=== PATIENT | male | born 1950 | race Caucasian/White ===

== ENCOUNTER 2023-05-17 16:15 | Outpatient (CLI) | payer MEDICARE, SELFPAY | END 2023-05-17 16:16 | disposition home or self-care (01) | LOC: AMB 05-19 17:15 | PROVIDERS: Visit Provider Student in an Organized Health Care Education/Training Program | DX: S09.93XA Unspecified injury of face, initial encounter (principal); W01.0XXA Fall on same level from slipping, tripping and stumbling without subsequent striking against object, initial encounter; Y93.01 Activity, walking, marching and hiking; Y92.410 Unspecified street and highway as the place of occurrence of the external cause | CPT/HCPCS: A0998 ==

== ENCOUNTER 2023-08-31 11:56 | Emergency (ER) | payer MEDICARE, SELFPAY ==
[2023-08-31 12:02] VITALS: BP 150/94; PULSE 83; RESP 16; TEMP 36.1; O2SAT 95
--- NOTE | 2023-08-31 12:20 | CRLHL7_ITS ---
For Patients: As a result of the Cures Act, medical imaging exams and procedure reports are released immediately into your electronic medical record. You may view this report before your referring provider. If you have questions, please contact your health care provider. INDICATION: FALL HIT HEAD, BLEEDING TECHNIQUE: CT cervical spine without contrast. COMPARISON: None. FINDINGS: Vertebrae: Straightening of expected cervical lordosis. There are no fractures or suspicious bony lesions. Discs and facet joints: There are degenerative disc changes most notably moderate at C5-6. There are multilevel degenerative changes in the facets. Osseous fusion of the posterior elements on the left C4-C5. Extraspinal findings: Paraspinous soft tissues are unremarkable. IMPRESSION: 1. No sign of acute cervical spine fracture. 2. Multilevel degenerative spondylosis. Please note that all CT scans at this facility use dose modulation, iterative reconstruction, and/or weight-based dosing when appropriate to reduce radiation dose to as low as reasonably achievable. Dictated by Darvin Cooley MD @ 08/31/2023 1:37:37 PM (Electronically Signed)
--- NOTE | 2023-08-31 12:20 | CRLHL7_ITS ---
For Patients: As a result of the Cures Act, medical imaging exams and procedure reports are released immediately into your electronic medical record. You may view this report before your referring provider. If you have questions, please contact your health care provider. INDICATION: FALL, BLEEDING RIGHT EYEBROW TECHNIQUE: CT maxillofacial without contrast. COMPARISON: None. FINDINGS: Facial bones: No fractures or bone lesions. Specifically the nasal bones, temporomandibular joints, maxilla and mandible appear intact. Orbits and globes: Unremarkable. Globes are intact. No sign of intraorbital hemorrhage or emphysema. Sinuses: No acute or significant findings. Soft tissues: Small right frontal/periorbital soft tissue contusion/hematoma. IMPRESSION: 1. No evidence of facial fracture. 2. Small right frontal/periorbital soft tissue contusion/hematoma. Please note that all CT scans at this facility use dose modulation, iterative reconstruction, and/or weight-based dosing when appropriate to reduce radiation dose to as low as reasonably achievable. Dictated by Darvin Cooley MD @ 08/31/2023 1:26:00 PM (Electronically Signed)
--- NOTE | 2023-08-31 12:20 | CRLHL7_ITS ---
For Patients: As a result of the Century Cures Act, medical imaging exams and procedure reports are released immediately into your electronic medical record. You may view this report before your referring provider. If you have questions, please contact your health care provider. INDICATION: FALL, BLEEDING RIGHT EYEBROW TECHNIQUE: Head CT without contrast. COMPARISON: CT head December 01, 2020. FINDINGS: Advanced cortical volume loss again most notably within the anterior frontal temporal regions with associated ventriculomegaly likely related to exact dilatation from volume loss. White matter hypodensities are suggestive of chronic small vessel ischemic changes. There is no loss of urena-white differentiation. There is no evidence of acute intracranial hemorrhage. Small right frontal/periorbital soft tissue contusion/hematoma. The visualized paranasal sinuses and mastoid air cells demonstrate no acute or significant findings. The visualized orbits are grossly unremarkable. No skull fractures. IMPRESSION: 1. No evidence of intracranial hemorrhage or skull fracture. 2. Small right frontal/periorbital soft tissue contusion/hematoma. 3. Advanced cortical volume loss again most notably within the anterior frontal temporal regions with associated ventriculomegaly likely related to expected dilatation from volume loss although would recommend correlation for signs symptoms of normal pressure hydrocephalus. These findings are similar to prior exam from December 01, 2020. Please note that all CT scans at this facility use dose modulation, iterative reconstruction, and/or weight-based dosing when appropriate to reduce radiation dose to as low as reasonably achievable. Dictated by Darvin Cooley MD @ 08/31/2023 1:21:28 PM (Electronically Signed)
--- NOTE | 2023-08-31 13:11 | ED.FALL ---
HPI - Fall General Date Seen: 08/31/23 Chief Complaint: Fall/Minor Trauma Stated Complaint: Fell, face lac Time Seen by Provider: 08/31/23 12:13 Source: patient Mode of arrival: ambulatory Limitations: altered mental status History of Present Illness HPI Narrative: Patient is a 73-year-old male with history of late stage severe dementia presenting to the emergency department for a fall he is here with his daughter and . They states he was with a friend when he fell. They are not sure how he fell but do states he has been tripping and falling a lot over the past year. He states he is otherwise acting at his baseline since that happened. The nose the cut above his right eye. They are not aware of any other problems at this time. Patient is unable answer any questions due to his dementia. Family states the not think it was a medical reason that he fell in our pretty sure he just tripped again. Related Data Home Medications Medication Instructions Recorded Confirmed amlodipine 5 mg tablet 5 mg PO DAILY 08/31/23 08/31/23 Allergies Allergy/AdvReac Type Severity Reaction Status Date / Time No Known Drug Allergies Allergy Verified 08/31/23 12:06 Review of Systems Status of ROS: Reports: unobtainable due to mental status PFSH PFSH Social History Smoking Status: Unknown if ever smoked Exam Narrative: Exam Narrative: Const: Well-nourished, Well-developed, in no distress Eyes: PERRL, no conjunctival injection, and symmetrical lids HENT: Atraumatic external nose and ears. Moist mucous membranes. Small laceration above right eyebrow Neck: Symmetric, trachea midline, No thyromegaly. CVS: RRR, No murmurs or gallops. Peripheral pulses 2+ and equal in all extremities RESP: Unlabored respiratory effort. Clear to auscultation bilaterally. GI: Nontender/Nondistended, No rebound or guarding. MSK:Extremities w/o deformity, Normal Active ROM Skin: Warm, Dry. No rashes or lesions. Neuro: Normal Muscle tone, No focal neurological deficits. Psych: Awake, Alert, & Oriented x0. Nonverbal Const: Vital Signs, click to edit/add: Vital Signs - 24 hr 08/31/23 12:02 08/31/23 14:20 Temperature 96.9 F L Pulse Rate [Pulse Oximeter] 83 97 Respiratory Rate 16 16 Blood Pressure [Ri ght Upper Arm] 150/94 H 144/120 H Pulse Oximetry 95 73 L Oxygen Delivery Me thod Room Air Room Air Course Vital Signs Vital signs: Initial Vital Signs Temperature 96.9 F L 08/31/23 12:02 Temperature Source Temporal Artery Scan 08/31/23 12:02 Pulse Rate 83 08/31/23 12:02 Respiratory Rate 16 08/31/23 12:02 Blood Pressure 150/94 H 08/31/23 12:02 Blood Pressure Mean 112 H 08/31/23 12:02 Blood Pressure Position Sitting 08/31/23 12:02 Pulse Oximetry 95 08/31/23 12:02 Oxygen Delivery Method Room Air 08/31/23 12:02 Vital Signs Temperature 96.9 F L 08/31/23 12:02 Pulse Rate 83 08/31/23 12:02 Respiratory Rate 16 08/31/23 12:02 Blood Pressure 150/94 H 08/31/23 12:02 Pulse Oximetry 95 08/31/23 12:02 Oxygen Delivery Method Room Air 08/31/23 12:02 Temperature 96.9 F L 08/31/23 12:02 Pulse Rate 97 08/31/23 14:20 Respiratory Rate 16 08/31/23 14:20 Blood Pressure 144/120 H 08/31/23 14:20 Pulse Oximetry 73 L 08/31/23 14:20 Oxygen Delivery Method Room Air 08/31/23 14:20 MDM - Fall MDM Narrative Medical decision making narrative: Patient is a 73-year-old male presenting to emergency department after a fall. Family describes as a mechanical fall in nature but cannot say for certain. I spoke to him about doing workup for other abnormalities that may have caused the fall but they state that would likely cause more stress for the patient than it is worth and do not want anything more than the CT scans at this time, this includes not wanting an EKG. OCT is head, facial bones, cervical spine. Images were done and returned showing no acute concerning findings. I spoke to the family about skin glue versus sutures at this time they think skin glue would be better. This is reasonable and skin glue was placed over laceration. There is about .75 cm long. He is otherwise doing well and can be discharged home. Family agrees with this plan. Imaging Data CT scan head: Radiologist's impression: 1. No evidence of intracranial hemorrhage or skull fracture. 2. Small right frontal/periorbital soft tissue contusion/hematoma. 3. Advanced cortical volume loss again most notably within the anterior frontal temporal regions with associated ventriculomegaly likely related to expected dilatation from volume loss although would recommend correlation for signs symptoms of normal pressure hydrocephalus. These findings are similar to prior exam from December 01, 2020. Please note that all CT scans at this facility use dose modulation, iterative reconstruction, and/or weight-based dosing when appropriate to reduce radiation dose to as low as reasonably achievable. Dictated by Darvin Cooley MD @ 08/31/2023 1:21:[address] scan cervical spine: Radiologist's impression: 1. No sign of acute cervical spine fracture. 2. Multilevel degenerative spondylosis. Please note that all CT scans at this facility use dose modulation, iterative reconstruction, and/or weight-based dosing when appropriate to reduce radiation dose to as low as reasonably achievable. Dictated by Darvin Cooley MD @ 08/31/2023 1:37:[address] scan facial bones: Radiologist's impression: 1. No evidence of facial fracture. 2. Small right frontal/periorbital soft tissue contusion/hematoma. Please note that all CT scans at this facility use dose modulation, iterative reconstruction, and/or weight-based dosing when appropriate to reduce radiation dose to as low as reasonably achievable. Dictated by Darvin Cooley MD @ 08/31/2023 1:26:00 PM Discharge Plan Discharge Clinical Impression: Fall Qualifiers: Encounter type: initial encounter Qualified Code(s): W19.XXXA - Unspecified fall, initial encounter Patient Disposition: Home w/ Parent or Adult Condition: Stable Instructions: Fall Prevention for Older Adults (ED) Additional Instructions: Do not place any antibiotic ointment or rub the area for 7 days to give the scab time to fully heal. For next 6 months, once sutures are removed, whenever you go outside put a dab of sunscreen over the laceration site to improve scar appearance. Topical antibiotics are not necessary at this time. Patient can shower but do not submerge the laceration until sutures are removed Return to emergency department for new or worsening symptoms Prescriptions: No Action amlodipine 5 mg tablet 5 mg PO DAILY Follow Up/Referrals: Deepak Meyer MD [Primary Care Provider] - Stand Alone Forms: [facility] Info Instructions Procedures Laceration Right eyebrow: Name of person performing procedure: Deepak Phillips Site: face (Eyebrow) Side (If applicable): right Size (cm): 0.75 Description: linear and clean Depth: simple, single layer Pre-repair: wound explored, irrigated extensively and deep structures intact Skin layer closed with: other (Skin glue)
[2023-08-31 14:20] VITALS: BP 144/120; PULSE 97; RESP 16; O2SAT 73
== END 2023-08-31 14:48 | disposition home or self-care (01) ==
PROVIDERS: Emergency Provider Student in an Organized Health Care Education/Training Program; PCP Surgery
DX: S01.111A Laceration without foreign body of right eyelid and periocular area, initial encounter (principal); S01.21XA Laceration without foreign body of nose, initial encounter; W18.30XA Fall on same level, unspecified, initial encounter
CPT/HCPCS: 12011; 70450; 70486; 72125; 99283

== ENCOUNTER 2024-09-08 21:30 | Inpatient (IN) | payer MEDICARE, SELFPAY ==
[2024-09-08 21:34] VITALS: BP 136/83; PULSE 108; RESP 16; TEMP 38; O2SAT 93; BMI 24.4
--- NOTE | 2024-09-08 21:38 | CRLHL7_ITS ---
For Patients: As a result of the Cures Act, medical imaging exams and procedure reports are released immediately into your electronic medical record. You may view this report before your referring provider. If you have questions, please contact your health care provider. INDICATION: Cough. TECHNIQUE: Chest 1 views. COMPARISON: April 29, 2021. FINDINGS: Cardiovascular and mediastinum: Stable heart size and vasculature. Lungs and pleural spaces: Interstitial thickening. No sign of infiltrate or mass. No sign of pleural effusion. No pneumothorax. Bones and soft tissues: No significant findings. IMPRESSION: Interstitial thickening, possibly pulmonary edema or infection in the appropriate clinical setting. No focal consolidations. Dictated by Mark Ibarra MD @ 09/08/2024 10:08:33 PM (Electronically Signed)
--- NOTE | 2024-09-08 21:44 | ED.GENADULT ---
HPI - General Adult General Chief complaint: Cough Stated complaint: AMS Time Seen by Provider: 09/08/24 21:36 History of Present Illness HPI narrative: This 74-year-old male is in respite care and a couple family members come with him. He is nonverbal and family member state that this is not new. He does arrive with some tachycardia and a fever. Family report symptoms began yesterday. Related Data Home Medications ?Medication ?Instructions ?Recorded ?Confirmed amlodipine 5 mg tablet 5 mg PO DAILY 08/31/23 08/31/23 Allergies Allergy/AdvReac Type Severity Reaction Status Date / Time No Known Drug Allergies Allergy Verified 08/31/23 12:06 Review of Systems Status of ROS: Reports: unobtainable due to mental status PFSH PFS Social History Smoking Status: Unknown if ever smoked Exam Narrative: Exam Narrative: Constitutional: Well-developed, well-nourished, no acute distress. HEENT: Normocephalic, atraumatic. Neck: Normal range of motion. Nontender. Supple. Heart: Regular. No murmurs. Tachycardia, rate 108 beats per minute Intact distal pulses. Lungs: Clear to auscultation. No chest discomfort. No wheezes, rhonchi, or rales. Abdomen: Normal bowel sounds. Nontender. No rebound tenderness. Genitalia: Deferred. Back: No midline tenderness. Normal range of motion. Extremities: Normal range of motion. No injury. Skin: Intact. No rash. Warm. No erythema or pallor. Neurologic: No altered sensation. No weakness. Alert and oriented. Psychiatric: No suicidality. No anxiety or depression. No insomnia. Nursing notes and vitals signs are reviewed. Const: Vital Signs, click to edit/add: Vital Signs - 24 hr 09/08/24 21:34 Temperature 100.4 F H Pulse Rate [Right Pulse Oximeter] 108 H Respiratory Rate 16 Blood Pressure [Ri ght Upper Arm] 136/83 Pulse Oximetry 93 Oxygen Delivery Me thod Room Air Course Vital Signs Vital signs: Initial Vital Signs Respiratory Effort Normal 09/08/24 21:33 Respiratory Depth Normal 09/08/24 21:33 Respiratory Pattern Normal 09/08/24 21:33 Vital Signs Temperature 100.4 F H 09/08/24 21:34 Pulse Rate 108 H 09/08/24 21:34 Respiratory Rate 16 09/08/24 21:34 Blood Pressure 136/83 09/08/24 21:34 Pulse Oximetry 93 09/08/24 21:34 Oxygen Delivery Method Room Air 09/08/24 21:34 Temperature 100.4 F H 09/08/24 21:34 Pulse Rate 108 H 09/08/24 21:34 Respiratory Rate 16 09/08/24 21:34 Blood Pressure 136/83 09/08/24 21:34 Pulse Oximetry 93 09/08/24 21:34 Oxygen Delivery Method Room Air 09/08/24 21:34 Medications Administered Medications: Discontinued Medications Generic Name Dose Route Start Last Admin Trade Name Gely PRN Reason Stop Dose Admin Sodium Chloride 500 mls @ 500 mls/hr 09/08/24 21:43 09/08/24 22:41 0.9 % Sodium Chloride 500 Ml IV 09/08/24 22:42 Infused .Q1H ONE Infusion Ketorolac Tromethamine 15 mg 09/08/24 21:43 09/08/24 22:04 Ketorolac 30 Mg/Ml Inj IVP 09/08/24 21:44 15 mg ONCE ONE Administration Medical Decision Making MDM Narrative Medical decision making narrative: This patient is currently in respite care but otherwise typically is at home with family. He has frontal temporal dementia but normally ambulates and functions okay at home. He comes in with tachycardia and borderline fever. He has had a cough. Nasal pharyngeal swab returns positive for COVID. Lab results also show some significant findings. In particular his sodium is rather high at 158. The patient did receive an initial 500 mL of normal saline but then seeing the sodium level a L of D5 W was ordered. His lactate returns at 2.1 however he is volume depleted. His BUN to creatinine ratio is greater than 20 indicating pre renal azotemia. I did speak with the hospitalist on-call, Dr. Lai, who agrees to bring him in for hydration over time to normalize his sodium level. Lab Data Labs: Lab Results 09/08/24 09/08/24 Range/Units 21:40 21:57 WBC 11.30 H (4.50-11.00) K/uL RBC 5.36 (4.30-5.90) m/uL Hgb 16.1 (13.5-17.5) gm/dL Hct 52.9 (37.0-53.0) % MCV 99 (80-100) fL MCH 30 (26-34) pg MCHC 30 L (32-36) gm/dL RDW Coeff of Bettye 14.0 (11.5-15.5) % Plt Count 186 (140-440) K/uL Neut % (Auto) 89.4 H (42.0-72.0) % Lymph % (Auto) 4.1 L (20-44) % Charles % (Auto) 5.8 (0.0-11.0) % Eos % (Auto) 0.2 (0.0-7.0) % Baso % (Auto) 0.2 (0.0-3.0) % Neut # (Auto) 10.10 H (1.7-7.0) K/uL Lymph # (Auto) 0.50 L (0.90-2.90) K/uL Charles # (Auto) 0.70 (0.00-0.90) K/UL Eos # (Auto) 0.00 (0.00-0.50) K/uL Baso # (Auto) 0.00 (0.00-0.30) K/uL Abs Immat Gran (auto) 0.00 (0.00-0.30) K/uL Imm/Tot Granulo (auto) 0.3 % Sodium 158 H (135-149) mmol/L Potassium 4.1 (3.6-5.1) mmol/L Chloride 118 H (96-114) mmol/L Carbon Dioxide 30 (20-32) mmol/L Anion Gap 10 (7-15) mEq/L BUN 55 H (7-30) mg/dL Creatinine 1.6 H (0.5-1.5) mg/dL Estimated Creat Clear 45.81 Estimated GFR 46 ml/min Glucose 143 H (60-115) mg/dL Lactate 2.1 H (0.5-1.9) mmol/L Calcium 9.8 (8.4-10.6) mg/dL SARS-CoV-2 (PCR) POSITIVE SARS-CoV-2 A (Negative) Influenza Type A (PCR) Negative PCR FLU A (Negative) Influenza Type B (PCR) Negative PCR FLU B (Negative) RSV (PCR) Negative PCR RSV (Negative) Imaging Data Chest x-ray: Radiologist's impression: Interstitial thickening, possibly pulmonary edema or infection in the appropriate clinical setting. No focal consolidations. Discharge Plan Discharge Clinical Impression: COVID-19, Hypernatremia Patient Disposition: Admitted As Observation Condition: Unchanged Prescriptions: No Action amlodipine 5 mg tablet 5 mg PO DAILY Follow Up/Referrals: Deepak Meyer MD [Primary Care Provider] -
[2024-09-08 22:03] LABS: Lactate* 2.1 mmol/L (0.5-1.9)
[2024-09-08 22:04] LABS: Basophils Percent Auto 0.2 % (0.0-3.0); Eosinophils Percent Auto 0.2 % (0.0-7.0); Hematocrit 52.9 % (37.0-53.0); Hemoglobin* 16.1 gm/dL (13.5-17.5); Immature Granulocytes Pct Auto 0.3 %; Lymphocytes Percent Auto 4.1 % (20-44); Mean Corpuscular HGB Conc 30 gm/dL (32-36); Mean Corpuscular Hemoglobin 30 pg (26-34); Mean Corpuscular Volume 99 fL (80-100); Monocytes Percent Auto 5.8 % (0.0-11.0); Neutrophils Percent Auto 89.4 % (42.0-72.0); Platelet Count* 186 K/uL (140-440); Red Blood Count 5.36 m/uL (4.30-5.90)
[2024-09-08] MEDS: KETOROLAC 30 MG/ML inj 15 MG IVP (22:04)
[2024-09-08] MEDS: 0.9 % SODIUM CHLORIDE 500 ML 500 ML IV (22:04)
[2024-09-08 22:08] LABS: Slide Review Reflex No
[2024-09-08 22:21] LABS: Chloride* 118 mmol/L (96-114); Potassium* 4.1 mmol/L (3.6-5.1); Sodium* 158 mmol/L (135-149)
[2024-09-08 22:24] LABS: Anion Gap 10 mEq/L (7-15); Blood Urea Nitrogen* 55 mg/dL (7-30); Carbon Dioxide* 30 mmol/L (20-32); Creatinine* 1.6 mg/dL (0.5-1.5); Est. Creatinine Clearance* 45.81; Estimated Glomerular Filt Rate 46 ml/min; Glucose* 143 mg/dL (60-115)
[2024-09-08 22:25] LABS: Calcium* 9.8 mg/dL (8.4-10.6)
[2024-09-08 22:37] LABS: PCR FLU A Negative PCR FLU A (Negative); PCR FLU B Negative PCR FLU B (Negative); PCR RSV Negative PCR RSV (Negative); SARS PCR* POSITIVE SARS-CoV-2 (Negative)
[2024-09-08] MEDS: 5 % DEXTROSE 1000 ML 1,000 ML 250 ML IV (23:24)
--- NOTE | 2024-09-08 23:51 | P.IMHP_ITS ---
Hospitalist- H&P: HPI History of Present Illness Date Seen: 09/08/24 Chief complaint: AMS Narrative: Flynn Gonzalez is a 74 year old male with advanced frontotemporal dementia admitted to the hospital with about a 1 day history of fever and cough and not being himself/appearing ill. History is obtained from family as the patient is nonverbal. Patient is normally cared for by his daughter who is also his healthcare power of electrophysiology technician. She has been gone for 2 weeks and so he was placed in respite care in [place] for these past 2 weeks. She has returned and was planning on taking him home but he appeared ill and so he was brought to the emergency [facility]. He may have had some mild cold symptoms in the last several days but became acutely ill in the last day or so. Patient has advanced frontal temporal dementia. He is nonverbal and appears not to respond to verbal communication such as indicating any type of understanding or following simple commands. He will not drink unless a drinking glass is put up to his mouth. When his daughter cares for him she leaves a glass right next to him where he is sitting but he wound drink unless she offers it to him which she does regularly through the day. The patient has no ability to indicate hunger or thirst or to communicate that. It is suspected that the staff at the assisted living did not continuously provide water in the manner that the daughter had been doing when he was living at home. He does feed himself to a limited extent but often needs to be fed as well. He is incontinent of bowel and bladder. He does walk with standby assist or walking stick. In the emergency department he was found to have a positive COVID test. Chest x-ray had interstitial thickening which may represent some heart failure or an infectious process such as viral pneumonia. His sodium was 158. His creatinine tonight is 1.6. His creatinine in January of 2023 was 1.08. Review of Systems Narrative: Patient unable to give any history. Family gives history as noted above. [facility] Medical History (Updated 09/09/24 @ 00:21 by Vinay Lai MD) Palliative care encounter ?Z51.5 - Encounter for palliative care (ICD-10) Frontotemporal dementia ?G31.09 - Other frontotemporal neurocognitive disorder (ICD-10) ?F02.80 - Dementia in other diseases classified elsewhere, unspecified severity, without behavioral disturbance, psychotic disturbance, mood disturbance, and anxiety (ICD-10) Hypertension ?I10 - Essential (primary) hypertension (ICD-10) Surgical History (Updated 09/09/24 @ 00:09 by Vinay Lai MD) History of colonoscopy ?Z98.890 - Other specified postprocedural states (ICD-10) S/P repair of hydrocele ?Z98.890 - Other specified postprocedural states (ICD-10) ?Z87.438 - Personal history of other diseases of male genital organs (ICD-10) History of tonsillectomy and adenoidectomy ?Z90.89 - Acquired absence of other organs (ICD-10) History of arthroscopy of shoulder ?Z98.890 - Other specified postprocedural states (ICD-10) Family History (Updated 09/09/24 @ 00:10 by Vinay Lai MD) Mother Colon cancer Father Alzheimers disease Parkinsons disease Social History (Updated 09/09/24 @ 00:12 by Vinay Lai MD) Narrative: He lives with his daughter who is his primary care provider and power of electrophysiology technician. He is a nonsmoker. Previously chewed tobacco. Does not drink alcohol. He is ambulatory with a walking stick or with his daughter holding on. Incontinent of bowel and bladder. Nonverbal. Unable to obtain food or fluid without caregiver initiating giving food or water Smoking Status: Unknown if ever smoked Meds Home Medications and Allergies Home Medications ?Medication ?Instructions ?Recorded ?Confirmed ?Type amlodipine 5 mg tablet 5 mg PO DAILY 08/31/23 08/31/23 History Allergies Allergy/AdvReac Type Severity Reaction Status Date / Time No Known Drug Allergies Allergy Verified 08/31/23 12:06 Exam Narrative: Exam Narrative: He is alert and appears in no obvious distress. Occasional cough with some rhonchi noted. No increased work of breathing. Nonverbal. Does not follow simple commands or in any other way indicate agreement or cooperation with exam. Head is without apparent trauma. Eyes normal. Mucous membranes are dry. No facial asymmetry. Neck is supple without mass or adenopathy. Respirations are clear to auscultation except for a rare basilar crackle. Cardiovascular: S1, S2, regular rate and rhythm. Abdomen: Bowel sounds active. Abdomen is soft without tenderness or mass. External genitalia normal. Extremities without edema. He moves all 4 extremities well. Const: Vital Signs, click to edit/add: Vital Signs - 24 hr 09/08/24 21:34 Temperature 100.4 F H Pulse Rate [Right Pulse Oximeter] 108 H Respiratory Rate 16 Blood Pressure [Ri ght Upper Arm] 136/83 Pulse Oximetry 93 Oxygen Delivery Me thod Room Air Documenting provider has reviewed patient's vital signs: yes Hospitalist - H&P: Result Labs Labs: Short CBC 09/08/24 Range/Units 21:57 WBC 11.30 H (4.50-11.00) K/uL Hgb 16.1 (13.5-17.5) gm/dL Hct 52.9 (37.0-53.0) % Plt Count 186 (140-440) K/uL BMP 09/08/24 21:57 Sodium 158 H Potassium 4.1 Chloride 118 H Carbon Dioxide 30 BUN 55 H Creatinine 1.6 H Glucose 143 H Calcium 9.8 Imaging Chest x-ray: Radiologist's impression: INDICATION: Cough. TECHNIQUE: Chest 1 views. COMPARISON: April 29, 2021. FINDINGS: Cardiovascular and mediastinum: Stable heart size and vasculature. Lungs and pleural spaces: Interstitial thickening. No sign of infiltrate or mass. No sign of pleural effusion. No pneumothorax. Bones and soft tissues: No significant findings. IMPRESSION: Interstitial thickening, possibly pulmonary edema or infection in the appropriate clinical setting. No focal consolidations. Assessment and Plan Assessment and plan (1) Hypernatremia: Problem comment: Patient likely has severe thirst from a sodium of 158 which he cannot communicate due to dementia. Also unable to independently obtain fluids to relieve his thirst. He requires a caregiver to provide fluids by putting them up to his mouth. Not just making them readily available. Likely will correct hypernatremia if offered free water. He has probably had this problem for several days while he has been in respite care so correction of sodium should be at or less than 12 millimoles per L per day Status: Acute (2) COVID-19: Problem comment: Has cough and congestion and possibly findings on chest x-ray of interstitial fluid representing viral pneumonia. Consider steroids if requiring oxygen Status: Acute (3) Hypertension: Problem comment: He takes amlodipine p.r.n. for elevated blood pressures. Does not take it most days. May not need blood pressure treatment Status: Acute (4) Frontotemporal dementia: Problem comment: Longstanding progressive. Now nonverbal, not able to indicate hunger or thirst. I initiated but did not complete a conversation about goals of care and palliative care with daughter. Status: Acute (5) Palliative care encounter: Problem comment: I initiated but did not complete a conversation with his daughter about goals of care and palliative care in a nonverbal patient with severe dementia who is unable to indicate hunger or thirst or initiate getting food or water. Status: Acute (6) NANCY (acute kidney injury): Problem comment: Likely pre renal NANCY due to patient's inability to communicate thirst or obtain water. Status: Acute Plan Patient is admitted to the hospital for evaluation and management of hypernatremia, acute kidney injury, COVID pneumonia. Total time spent today is 85 minutes in reviewing outside records, obtaining history, discussing with family and other providers plan of care, goals of care and expected course of treatment
[2024-09-08 23:54] VITALS: BP 111/75; PULSE 91; RESP 16; TEMP 37.4; O2SAT 93
[2024-09-09] VITALS (34 sets, daily range): BP systolic 76–141; BP diastolic 36–101; PULSE 87–164; RESP 16–28; TEMP 37.2–40.4; O2SAT 70–96
[2024-09-09 00:04] LABS: Lactate* 2.1 mmol/L (0.5-1.9)
[2024-09-09 00:21] LABS: Chloride* 119 mmol/L (96-114); Potassium* 3.4 mmol/L (3.6-5.1); Sodium* 157 mmol/L (135-149)
[2024-09-09 00:23] LABS: Creatinine* 1.5 mg/dL (0.5-1.5); Est. Creatinine Clearance* 48.86; Estimated Glomerular Filt Rate 49 ml/min
[2024-09-09 00:24] LABS: Anion Gap 9 mEq/L (7-15); Blood Urea Nitrogen* 56 mg/dL (7-30); Calcium* 9.4 mg/dL (8.4-10.6); Carbon Dioxide* 29 mmol/L (20-32); Glucose* 168 mg/dL (60-115)
--- OUTSIDE RECORDS SUMMARY | 2024-09-09 00:25 | XMS_ITS | Clinical Summary ---
Author Organization [facility] Address [place], [place] [address] Care Team Providers Care Bioassayist Name Role Phone Deepak Meyer MD Primary Care Provider [phone] Allergies Active Allergy Reactions Criticality Noted Date Comments Mold Extracts 07/30/2007 Medications cholecalciferol (VITAMIN D3) 2,000 unit capsule Take 2,000 Units by mouth. Active multivitamins-mi nerals-lutein (CENTRUM SILVER) 0.4-300-250 mg-mcg-mcg tab Take 1 tablet by mouth. Active ascorbic acid CR (VITAMIN C) 500 mg Extended-Release tablet Daily Active zinc sulfate 50 mg zinc (220 mg) capsule Daily Active amLODIPine (NORVASC) 5 mg tabletIndication s:HTN (hypertension) Take 1 Tablet (5 mg) by mouth once daily. 90 Tablet 3 05/06/2024 Active Active Problems Problem Noted Date Diagnosed Date Elevated liver enzymes 12/14/2020 Frontotemporal dementia 12/14/2020 Overview (11/12/2023): Nonverbal Esophageal dysphagia 03/16/2017 Overview (03/16/2017): Colonoscopy 02/2017 normal, try proton pump inhibitor, manometry if symptoms persist Family history of malignant neoplasm of gastrointestinal tract 12/08/2008 Overview (12/30/2015): Colonoscopy 11/2008 polyp repeat in 5 years Colonoscopy 12/2015 diverticulosis repeat in 5 years Resolved Problems Problem Noted Date Diagnosed Date Resolved Date Diarrhea 04/07/2009 12/30/2015 Encounters Date Type Department Care Team Description 08/28/2024 Telephone [facility] [address] [place] [address] Deepak eMyer MD orders (hold orders) from Last 3 Months Immunizations Name Administration Dates Next Due Influenza, High-dose Inactivated 07/01/2018,06/21 Influenza, Inactivated AIIV4 (Age 65+ Years) Preserv Free 06/03/2021,08/04/2020 Influenza, Inactivated IIV3 (Age 65+ Years) Preserv Free 05/06/2024,05/22/2019,07/01/2018 Pneumococcal Poly,23-Valent (Pneumovax) 05/22/20 19 Pneumococcal conj 13-Valent (Prevnar 13) 017 Td (Age >=7 Years) 09/06/2017,06/14/1992, 991 Tdap 07/16/2007 Zoster (Zostavax-ZVL, live) 09/25/2012 Family History Medical History Relation Name Comments Other Father dementia, parki nsons Diabetes Maternal Grandfather Cancer-colon Mother age 65 Relation Name Status Comments Father Maternal Grandfather Mother Social History Tobacco Use Types Packs/Day Years Used Date Smoking Tobacco: Never Smokeless Tobacco: Former Snuff Quit: 09/28/2011 Tobacco Cessation:Counseling Given: Yes Alcohol Use Standard Drinks/Week Comments Not Currently 0 (1 standard drink = 0.6 oz pur e alcohol) PHQ-2 Answer Date Recorded PHQ-2 TOTAL SCORE 3 05/06/2024 Social Connections Answer Date Recorded Frequency of Communication with Friends and Fami ly 0 04/24/2023 Financial Resource Strain Answer Date R ecorded Difficulty of Paying Living Expenses 3 04/24/2023 Difficulty of Paying Living Expenses Not on file 04/24/2023 Food Insecurity Answer Date Recorded Worried About Running Out of Food in the Last Ye ar 1 04/24/2023 Transportation Needs Answer Date Record ed Lack of Transportation (Medical) 1 04/24/2023 Housing Stability Answer Date Recorded Unable to Pay for Housing in the Last Year 1 04/24/2023 Sex and Gender Information Value Date Recorded Sex Assigned at Not on file Legal Sex Male 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 Gender Identity Not on file Sexual Orientation Not on file 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 Not on file Not o n file Not on file Obstetrics History Last Filed Vital Signs Vital Sign Reading Time Taken Comments Blood Pressure 138/88 05/06/2024 1:12 PM CDT Pulse 53 05/06/2024 1:12 PM CDT Temperature 36.3 C (97.4 F) 12/14/2020 3:59 PM CDT Respiratory Rate 16 10/31/2011 1:30 PM CDT Oxygen Saturation 99% 05/06/2024 1:12 PM CDT Inhaled Oxygen Concentration - - Weight 83.6 kg (184 lb 4.8 oz) 05/06/2024 1:12 P M CDT Height 187 cm (6' 1.62) 05/06/2024 1:12 PM CDT Body Mass Index 23.91 05/06/2024 1:12 PM CDT Plan of Treatment Health Maintenance Due Date Last Done Comments Zoster (shingles) series for age 50+ (2 of 3) 11/20/2012 09/25/2012 Colonoscopy through age 75 12/29/202012/29, 12/30/2015, 12/08/2008 COVID-19 vaccine series ( season) 2024 BMI (ht and wt on same day) for age 18+ 05/06/2025 05/06/2024, 04/24/2023, 01/24/2023, Additional history exists Depression screening for age 12+ 05/06/2025 05/06/2024, 04/24/2023, 01/24/2023, Additional history exists Medicare Wellness for age 65+ 05/07/2025, 04/24/2023, 12/14/2020, Additional history exists Lipids for age 45-75 12/14/2025 12/14/2020, 09/06/2017, 09/27/2012, Additional history exists RSV vaccine for adults or (1 - 1-dose 75+ series) 02/01/2027 Tetanus booster 09/06/2027 09/06/2017, 06/21, 06/14/1992, Additional history exists Tdap Completed 07/16/2007 Hepatitis C screening for ag e 18-79 Completed 09/06/2017 Pneumococcal series for age 50+ Completed 9, 02/28/2017 Influenza for age 65+ Completed 05/06/2024 , 06/03/2021, 08/04/2020, Additional history exists Procedures Procedure Name Priority Date/Time Associated Diagnosis Comments LIPID PANEL Routine 12/14/2020 4:49 PM CDT Screening, lipid ANTI HCV Routine 09/06/2017 2:00 PM RETAIL FINANCIAL ANALYST Encounter for hepatitis C screening test for low risk patient from Last 3 Months or Most Recently Relevant to Health Maintenance Results * (ABNORMAL) LIPID PANEL (12/14/2020 4:49 PM CDT) CHOLESTEROL,TOTAL 213(H) 100 - 199 mg/dL 12/15/2020 2:43 PM CDT [facility] TRIGLYCERIDES 246(H) <150 mg/dL 12/15/2020 2:43 PM CDT [facility] HDL CHOLESTEROL 34(L) >40 mg/dL 2:43 PM CDT [facility] NON-HDL CHOLESTEROL 179(H) <145 mg/dl 12/15/2020 2:43 PM CDT [facility] CHOL/HDL RATIO 6.26(H) <4.50 12/15/2020 2:43 PM CDT [facility] LDL CHOLESTEROL 130 <=130 mg/dL 12/15/2020 2:43 PM CDT [facility] VLDL CHOLESTEROL 49 mg/dL 12/16/19 2:43 PM CDT [facility] PROVIDER ORDERED STATUS RANDOM 12/15/2020 2:43 PM CDT [facility] Blood BLOOD SPECIMEN / Unknown Butterfly / Unknown 12/14/2020 4:49 PM CDT 12/14/2020 4:49 PM CDT us Deepak Meyer MD CHEMISTRY Final Resu lt [facility] [address] [place] [address], [place] * ANTI HCV (09/06/2017 2:00 PM RETAIL FINANCIAL ANALYST) HEPATITIS C ANTIBODY Non-Reacti ve Non-Reacti ve 09/06/2017 8:47 PM RETAIL FINANCIAL ANALYST [facility] Blood BLOOD SPECIMEN / Unknown Venipuncture / Unknown 09/06/2017 2:00 PM RETAIL FINANCIAL ANALYST 09/06/2017 2:01 PM RETAIL FINANCIAL ANALYST Narrative [facility] - 09/06/2017 8:47 PM RETAIL FINANCIAL ANALYST Antibodies to HCV not detected; does not exclude the possibility of exposure to HCV. us Georgi Phillips MD SEND OUTS Final Resu lt [facility] [address] [place] [address], from Last 3 Months or Most Recently Relevant to Health Maintenance Insurance [facility] MR/MSHO Advance Directives Documents on File Type Date Recorded Patient Vice Admiral Expl anation Healthcare Directive 09/07/2017 9:06 AM VERÓNICA KERR, 08/22/17 Power of Construction Laborer 07/24/2017 CHRISTINA CARLSON AND JAQUAN CARLSON, 07/24/2017 Care Teams Bioassayist Relationship Specialty Start Date End Date Deepak Meyer MD [address] [facility] [place] [address] PCP - General Family Practice 06/07/21
--- OUTSIDE RECORDS SUMMARY | 2024-09-09 00:25 | XMS_ITS | Continuity of Care Document ---
Author Name [facility] Address Unknown Organization Unknown Address Unknown Procedures FILTER APPLIED:Only known Procedures with Onset Date within the last 5 years Procedure Date Procedure Provider Additiona l Information Status CT HEAD/BRAIN W/O DYE ([address]) [address] MAXILLOFACIAL W/O DYE (94827) Completed EMERGENCY DEPT VISIT LOW MDM (15682) Completed RPR F/E/E/N/L/M 2.5 CM/< (21290) Completed CT NECK SPINE W/O DYE (86971) Completed Encounters FILTER APPLIED:Only known Encounters with Admission Date within the last 5 years Encounter Location Admission Discharge Billing Code Template Layout Worker [facility] Deepak [facility] Deepak [facility]
[2024-09-09 00:34] LABS: NT Pro B Type NatriureticPept* 63 pg/mL
[2024-09-09] MEDS: POTASSIUM BICARB 25 MEQ EFFERVESCENT TAB PO (01:42)
[2024-09-09] MEDS: 5 % DEXTROSE 1000 ML 1,000 ML 80 ML IV ×2 (01:43→10:03)
--- NOTE | 2024-09-09 02:19 | CRLHL7_ITS ---
For Patients: As a result of the Cures Act, medical imaging exams and procedure reports are released immediately into your electronic medical record. You may view this report before your referring provider. If you have questions, please contact your health care provider. INDICATION: Aspiration TECHNIQUE: Chest radiograph 1 view COMPARISON: 09/08/2024 FINDINGS: Mediastinum: The mediastinum is normal in appearance. The heart silhouette is normal in size and morphology. Lung: Mild reticulonodular interstitial opacities are noted in the right mid lung without change. No sign of pleural effusion seen. No pneumothorax is identified. Bone and Soft tissue: Unremarkable for age. IMPRESSION: 1. Mild reticulonodular interstitial opacities are noted in the right mid lung without change. Dictated by Zen Benitez MD @ 09/09/2024 2:51:42 AM Dictated by: Zen Benitez MD @ 09/09/2024 02:52:27 (Electronically Signed)
[2024-09-09] MEDS: METOPROLOL TARTRATE 1 MG/ML inj 5 MG IVP ×2 (03:04→05:30)
[2024-09-09 03:06] LABS: HCO3 VBG 30 mmol/L (21-28); PCO2 VBG 49 mmHG (40-50); PO2 VBG < 30.1 mmHG (25-47); pH VBG 7.388 (7.32-7.43)
[2024-09-09] MEDS: 5 % DEXTROSE/0.45% SOD CHLOR 1,000 ML 1200 ML IV (03:07)
[2024-09-09 03:09] LABS: Basophils Absolute Auto 0.02 K/uL (0.00-0.30); Basophils Percent Auto 0.2 % (0.0-3.0); Eosinophils Absolute Auto 0.01 K/uL (0.00-0.50); Eosinophils Percent Auto 0.1 % (0.0-7.0); Hematocrit 49.4 % (37.0-53.0); Hemoglobin* 14.8 gm/dL (13.5-17.5); Immature Granulocytes Abs Auto 0.02 K/uL (0.00-0.30); Immature Granulocytes Pct Auto 0.2 %; Lymphocytes Percent Auto 7.4 % (20-44); Mean Corpuscular HGB Conc 30 gm/dL (32-36); Mean Corpuscular Hemoglobin 30 pg (26-34); Mean Corpuscular Volume 100 fL (80-100); Monocytes Percent Auto 6.7 % (0.0-11.0); Neutrophils Percent Auto 85.4 % (42.0-72.0); Platelet Count* 195 K/uL (140-440); RDW Coefficient of Variation % 14.2 % (11.5-15.5); Red Blood Count 4.94 m/uL (4.30-5.90); White Blood Count* 10.42 K/uL (4.50-11.00)
[2024-09-09 03:10] LABS: Slide Review Reflex No
[2024-09-09 03:22] LABS: Chloride* 119 mmol/L (96-114); Potassium* 3.6 mmol/L (3.6-5.1); Sodium* 156 mmol/L (135-149)
[2024-09-09 03:24] LABS: Creatinine* 1.5 mg/dL (0.5-1.5); Est. Creatinine Clearance* 48.86; Estimated Glomerular Filt Rate 49 ml/min
[2024-09-09 03:25] LABS: Anion Gap 9 mEq/L (7-15); Blood Urea Nitrogen* 58 mg/dL (7-30); Calcium* 9.4 mg/dL (8.4-10.6); Carbon Dioxide* 28 mmol/L (20-32); Glucose* 148 mg/dL (60-115)
[2024-09-09] MEDS: 0.9 % SODIUM CHLORIDE 1000 ml 1,000 ML IV (03:30)
[2024-09-09 03:35] LABS: NT Pro B Type NatriureticPept* 74 pg/mL
[2024-09-09] MEDS: dilTIAZem 5 MG/ML inj 10 MG IVP (04:34)
--- NOTE | 2024-09-09 04:35 | P.CCN_ITS ---
Subjective Subjective Principal diagnosis: Aspiration, AFib with RVR, Hypotension Interval history: With the patient is a 74-year-old male with history of dementia who is nonverbal at baseline, currently admitted to the hospital for fever and cough. He was tested positive for COVID-19 on admission. He was also hypernatremic with sodium 158. Overnight patient was given usual potassium pills and per RN he had aspiration event. He became very short of breath and tachycardic. He was seen with Teladoc device multiple times during the night. His initial respiratory status did stabilize however patient developed hypotension with systolic blood pressure dropping to 80s and heart rate in 160s to 170s. Initially a dose of Lopressor 5 mg IV and 500 cc bolus was given with no response. He was then given an additional 1 L of IV fluids. Overnight patient received total 1.5 normal saline due to hypertension. He did receive Cardizem 10 mg, Lopressor 5 mg x 2. Amiodarone was ordered however patient is morning did convert back to sinus rhythm. Due to unstable A-fib requiring possi ble cardioversion versus antiarrhythmic, he was started on heparin drip with new onset A-fib. Objective Objective Data Details: On exam patient was nonverbal. He is breathing had improved. He remained awake and responsive. CVS: + tachycardia with irregular rate CHest: + coarse breath sounds. Assessment and Plan Assessment and plan (1) Aspiration into airway: Status: Acute (2) Atrial fibrillation with RVR: Status: Acute (3) Hypotension: Status: Acute Plan # Acute Aspiration Event Pt had an episode of acute respiratory distress and tachycardia after aspiration Chest x-ray showed mild reticulonodular interstitial opacities are noted in the right midlung change. CTA chest showed no pulmonary embolism. Right upper lobe pneumonia. No cavitation atelectasis. No parapneumonic effusion. WBC is normal. Start on Zosyn for aspiration pneumonia NPO and MERCHANDISING SPECIALIST eval this am. # AFib with RVR # Hypotension - Pt developed unstable AFib with RVR. HR [id number]. SBP dropped to 80s. - Total Ns 1.5L given. pt remained hypotensive and plan was to start heparin gtt and give amio 150 mg IV. However pt converted so sinus rhythm prior to giving amio. - Will defer to day shift to discuss with cardiology regarding further plans to continue AC vs hold it since pt has convered back to sinus rhythm. Total Time Spent Total Time Spent: 90 min
[2024-09-09] MEDS: 0.9 % SODIUM CHLORIDE 500 ML 500 ML IV (05:15)
--- NOTE | 2024-09-09 05:37 | CRLHL7_ITS ---
For Patients: As a result of the Century Cures Act, medical imaging exams and procedure reports are released immediately into your electronic medical record. You may view this report before your referring provider. If you have questions, please contact your health care provider. INDICATION: Hypoxia and aspiration, rule out PE. COMPARISON: Chest radiograph 09/09/2024 and 09/08/2024 TECHNIQUE: CT angiogram chest with contrast, pulmonary embolism protocol. Multiplanar axial, coronal, and sagittal reformats are included. MIP images to improve detection of pulmonary emboli are included. Intravenous contrast: 95 mL Isovue 370. Technologist indicates patient unable to raise arms or follow breathing instructions for this examination. Exam remains diagnostic for the intended purposes. FINDINGS: PE: Well-timed contrast bolus. No pulmonary emboli. Normal caliber main pulmonary artery. Normal sized right heart chambers. Small volume reflux of contrast below the diaphragm. Airway: Expiratory appearance of the trachea. Lungs: Expiratory appearance of the lungs. There is a focal consolidation in the right upper lobe that measures about 4 centimeters. No other discrete nodules are visible.. There is bibasilar atelectasis. No pulmonary edema or emphysema. Pleura: No pleural effusion. No pneumothorax. Lymph nodes: No thoracic adenopathy. Mediastinum: No pneumomediastinum. No mass. Heart and great vessels: No pericardial effusion. Normal cardiac chamber size. No calcified atherosclerotic plaques. No aortic aneurysm. Chest wall: Normal. No masses. Upper abdomen: There are bilateral renal cysts. The cyst on the right is not fully included in the field of view and measures at least 6.5 centimeters. The largest cyst within the field of view on the left measures 4 centimeters. Renal parenchyma appears relatively normal otherwise without thinning in the upper poles. Bones: No fractures. No focal bone lesions. IMPRESSION: 1. No pulmonary embolism. 2. Right upper lobe pneumonia. No cavitation or necrosis. No parapneumonic effusion. Please note that all CT scans at this facility use dose modulation, iterative reconstruction, and/or weight-based dosing when appropriate to reduce radiation dose to as low as reasonably achievable. Dictated by Jennifer Fernandez MD @ 09/09/2024 6:54:57 AM (Electronically Signed)
[2024-09-09] MEDS: ACETAMINOPHEN 650 MG SUPP PR ×3 (06:23→22:45)
[2024-09-09 06:53] LABS: Basophils Absolute Auto 0.01 K/uL (0.00-0.30); Basophils Percent Auto 0.1 % (0.0-3.0); Eosinophils Absolute Auto 0.02 K/uL (0.00-0.50); Eosinophils Percent Auto 0.2 % (0.0-7.0); Hematocrit 47.8 % (37.0-53.0); Hemoglobin* 14.5 gm/dL (13.5-17.5); Immature Granulocytes Abs Auto 0.02 K/uL (0.00-0.30); Immature Granulocytes Pct Auto 0.2 %; Lymphocytes Percent Auto 9.5 % (20-44); Mean Corpuscular HGB Conc 30 gm/dL (32-36); Mean Corpuscular Hemoglobin 31 pg (26-34); Mean Corpuscular Volume 100 fL (80-100); Monocytes Percent Auto 10.1 % (0.0-11.0); Neutrophils Percent Auto 79.9 % (42.0-72.0); Platelet Count* 172 K/uL (140-440); RDW Coefficient of Variation % 14.2 % (11.5-15.5); Red Blood Count 4.76 m/uL (4.30-5.90); White Blood Count* 10.07 K/uL (4.50-11.00)
[2024-09-09 06:57] LABS: Chloride* 119 mmol/L (96-114); Potassium* 3.6 mmol/L (3.6-5.1); Sodium* 155 mmol/L (135-149)
[2024-09-09 06:59] LABS: Creatinine* 1.5 mg/dL (0.5-1.5); Est. Creatinine Clearance* 47.77; Estimated Glomerular Filt Rate 49 ml/min
[2024-09-09 07:00] LABS: Anion Gap 8 mEq/L (7-15); Blood Urea Nitrogen* 52 mg/dL (7-30); Calcium* 8.4 mg/dL (8.4-10.6); Carbon Dioxide* 28 mmol/L (20-32); Glucose* 105 mg/dL (60-115)
[2024-09-09 07:07] LABS: Slide Review Reflex No
[2024-09-09 07:08] LABS: INR 1.23 (0.91-1.10); Prothrombin Time 16.3 Seconds
[2024-09-09 07:10] LABS: Partial Thromboplastin Time* 28 Seconds (23-33)
--- NOTE | 2024-09-09 07:56 | PC.NURSE ---
Addendum entered by Tamie Belcher 09/09/24 08:22: Pt lung sounds after bolus were no different from when he came to floor around 2330, expiratory rhonchi, no crackles Addendum entered by Tamie Belcher 09/09/24 08:15: had also ordered stat chest x-ray for aspiration event Original Note: End of shift note [id number]: Pt arrived around 2330 no family members present, pt alert and oriented to self only. Pt is non-verbal at baseline. Around 0145 pt was given potassium bicarbonate 25 meq PO in 8oz of water, pt took small sips over 20mins, 30 secs-1 min after sipping the last bit of the medication, pt started coughing, and spitting up phlegm, O2 stats ranged from 84-94% with pt coughing. This RN hit staff assist button gas charger and floor RNs came set up suction, place pt on oxymask, called and updated Samir SHIN to come on screen. Pt's heart rate was ranging between 130-160bpm, EKG showed sinus tachycardia. Pt's aspiration event last for 15-20 mins and has mostly resolved when MD appeared on Screen, but pt's heart rete remained tachycardia and bp was trending down, MD ordered 5mg metoprolol and 500cc bolus. Pt's heart rate went down as low as 135 for 5-10mins then trended back up into 140-160. MD updated family. Around 0354 EKG done showing A-fib, updated MD on low blood pressures and continuing high HR with A-fib, Dilizem and 1000ml bolus ordered. Pt heart rate continued to range between 135-165 bmp. Update MD, oders given for 500 cc bolus and another metoprolol [address] of chest, pt converted 0650 NSR. Pt is voiding, turned and repositioned throughout night. RN updated family after MD inial first call for code status.
[2024-09-09] MEDS: PIPERACILLIN/TAZOBACTAM 3.375 GM in 0.9 % SODIUM CHLORIDE Mini-bag 100 ML IVPB (08:15)
[2024-09-09] MEDS: SODIUM CHLORIDE 0.9 % (FLUSH) 10 ML SYRINGE 5 ML IVF (08:16)
--- NOTE | 2024-09-09 09:56 | NUTR.NU ---
RDN with nutrition screen related to positive MST score. Patient admitted for covid positive, NANCY, and hypernatremia. Medical history significant for severe dementia, non-verbal. Current weight 167lb 4oz; height 6ft; BMI 22.7 kg/m2. no weight history to assess. Current diet is NPO. No meal intakes since admit due to being NPO. No nutrition interventions at this time with current diet order. RDN will continue to monitor and follow-up prn.
[2024-09-09 11:25] LABS: Chloride* 120 mmol/L (96-114)
[2024-09-09 11:26] LABS: Potassium* 3.4 mmol/L (3.6-5.1); Sodium* 155 mmol/L (135-149)
[2024-09-09 11:28] LABS: Creatinine* 1.5 mg/dL (0.5-1.5); Est. Creatinine Clearance* 47.77; Estimated Glomerular Filt Rate 49 ml/min
[2024-09-09 11:29] LABS: Anion Gap 9 mEq/L (7-15); Blood Urea Nitrogen* 46 mg/dL (7-30); Calcium* 8.7 mg/dL (8.4-10.6); Carbon Dioxide* 26 mmol/L (20-32); Glucose* 128 mg/dL (60-115)
[2024-09-09] MEDS: POTASSIUM CHLORIDE 10 MEQ/100 ML PIGGYBACK 100 MEQ IVPB (12:48)
--- NOTE | 2024-09-09 15:52 | P.IMPN_ITS ---
Progress Note: A&P Assessment and plan (1) Aspiration into airway: Status: Acute (2) Pneumonia: Problem details: - probable aspiration vs community acquired pneumonia - start ceftriaxone and azithromycin Status: Acute (3) Hypernatremia: Problem details: Patient likely has severe thirst from a sodium of 158 which he cannot communicate due to dementia. Also unable to independently obtain fluids to relieve his thirst. He requires a caregiver to provide fluids by putting them up to his mouth. Not just making them readily available. Likely will correct hypernatremia if offered free water. He has probably had this problem for several days while he has been in respite care so correction of sodium should be at or less than 12 millimoles per L per day - 09/09 Na 155 x two checks. Restart IV D5W and increase rate to 100cc/hr. Will recheck Na and then also add maintenance IVF as he is NPO Status: Acute (4) Atrial fibrillation with RVR: Problem details: - occurred 09/09 am after aspiration event, new diagnosis - converted back to NSR - patient has h/o falls, understands risk of stroke without anticoagulation and would like to hold on starting anticoag due to risk outweighing benefit Status: Acute (5) COVID-19: Problem details: Has cough and congestion and possibly findings on chest x-ray of interstitial fluid representing viral pneumonia. Consider steroids if requiring oxygen - does not want him to get remdesivir or paxlovid Status: Acute (6) NANCY (acute kidney injury): Problem details: Likely pre renal NANCY due to patient's inability to communicate thirst or obtain water. - Continue IVF, recheck Status: Acute (7) Palliative care encounter: Problem details: - Per Lai: I initiated but did not complete a conversation with his daughter about goals of care and palliative care in a nonverbal patient with severe dementia who is unable to indicate hunger or thirst or initiate getting food or water. - 09/09 long palliative care discussion with as above Status: Acute (8) Frontotemporal dementia: Problem details: Longstanding progressive. Now nonverbal, not able to indicate hunger or thirst. palliative care discussions as above Status: Chronic (9) Hypertension: Problem details: He takes amlodipine p.r.n. for elevated blood pressures. Does not take it most days. May not need blood pressure treatment Status: Chronic (10) Hypotension: Problem details: - during afib with RVR Status: Resolved (11) Hypokalemia: Problem details: - unable to take PO - replace IV, monitor Status: Acute Time Spent With Patient Total time spent: Today I spent 60 minutes seeing the patient, discussing care with the patient's , reviewing Expanse and EPIC notes/diagnostics/labs, discussing the care plan with our care team that includes social work, PT/OT, pharmacy, RT, prison and documenting my impressions and plan in the medical record. Subjective Time Seen by Provider: 09:40 Date Seen: 09/09/24 Interval history: - Non verbal at baseline, patient unable to give me any information or ROS. - Had an aspiration event overnight during which he went into afib with RVR. Afib is new for him. He was given diltiazem and metoprolol and converted. - I spoke with his today: - He is non verbal at baseline - He holds food in his mouth sometimes at home - He makes no attempts to get up or leave while at his house - He eats and sometimes feed himself if food is in front of him, must be encouraged to drink water - He goes for daily walks with or an old friend who comes several times a week - She's had conversations with patient's PCP, Dr. Meyer, about hospice. She notes that Flynn still may live a long time, so she doesn't think he's ready for hospice yet - She is agreeable to him being DNR/DNI - She wants to focus on preserving quality of life, agrees with no anticoagulation for afib due to risk of bleeding with falls, which he sometimes has on walks, understands there is a risk of stroke with afib not treated with anticoagulation - She would like to treat current hypernatremia - She declines covid specific medications - Discussed unsafe swallowing at present (per speech therapy eval today; repeating eval tomorrow), likely acute (covid) on chronic (dementia). She wants him NPO until reeval tomorrow due to high risk of aspiration Exam Narrative: Exam Narrative: General: Laying in bed with the head of bed up, staring straight ahead. Awake, alert, nonverbal. He looks at me when I talk, but makes no response. He does sit forward for me when I asked him to, but he does not take deep breaths. No pallor. No jaundice. Oropharynx: Clear. Mucous membranes dry. Cardiovascular: Regular rate and rhythm. No murmurs, gallops, or rubs. Respiratory: Clear to auscultation bilaterally. No wheezes or crackles. Abdomen: Bowel sounds present. Soft, nondistended, nontender. Extremities: No lower extremity edema. Const: Vital Signs, click to edit/add: Vital Signs - 24 hr 09/08/24 21:34 09/08/24 23:54 09/08/24 23:54 Temperature 100.4 F H 99.4 F Pulse Rate Pulse Rate [Pulse Oximeter] 91 Pulse Rate [Right Pulse Oximeter] 108 H Respiratory Rate 16 16 16 Blood Pressure [Ri ght Arm] 111/75 Blood Pressure [Ri ght Upper Arm] 136/83 Pulse Oximetry 93 93 93 Oxygen Delivery Me thod Room Air Room Air Room Air Oxygen Flow Rate 09/09/24 02:16 09/09/24 02:30 09/09/24 02:45 Temperature Pulse Rate Pulse Rate [Pulse Oximeter] 135 H 145 H 155 H Pulse Rate [Right Pulse Oximeter] Respiratory Rate 24 Blood Pressure [Ri ght Arm] 106/91 H 100/86 87/36 L Blood Pressure [Ri ght Upper Arm] Pulse Oximetry 94 90 70 L Oxygen Delivery Me thod Room Air Room Air Oxygen Flow Rate 09/09/24 02:56 09/09/24 03:00 09/09/24 03:15 Temperature Pulse Rate Pulse Rate [Pulse Oximeter] 132 H 155 H 160 H Pulse Rate [Right Pulse Oximeter] Respiratory Rate 16 Blood Pressure [Ri ght Arm] 120/96 H 106/81 76/56 L Blood Pressure [Ri ght Upper Arm] Pulse Oximetry 90 93 92 Oxygen Delivery Me thod OxyMask Room Air Room Air Oxygen Flow Rate 6 09/09/24 03:21 09/09/24 03:30 09/09/24 03:41 Temperature Pulse Rate Pulse Rate [Pulse Oximeter] 157 H 151 H 147 H Pulse Rate [Right Pulse Oximeter] Respiratory Rate 18 16 Blood Pressure [Ri ght Arm] 81/67 L 85/71 L 87/64 L Blood Pressure [Ri ght Upper Arm] Pulse Oximetry 96 95 91 Oxygen Delivery Me thod Oxygen Flow Rate 09/09/24 03:45 09/09/24 04:00 09/09/24 04:18 Temperature Pulse Rate Pulse Rate [Pulse Oximeter] 156 H 156 H 155 H Pulse Rate [Right Pulse Oximeter] Respiratory Rate Blood Pressure [Ri ght Arm] 86/68 L 104/57 L 91/78 Blood Pressure [Ri ght Upper Arm] Pulse Oximetry 92 95 92 Oxygen Delivery Me thod Room Air Oxygen Flow Rate 09/09/24 04:30 09/09/24 04:49 09/09/24 05:04 Temperature Pulse Rate Pulse Rate [Pulse Oximeter] 153 H 164 H 135 H Pulse Rate [Right Pulse Oximeter] Respiratory Rate Blood Pressure [Ri ght Arm] 110/93 H 92/67 81/64 L Blood Pressure [Ri ght Upper Arm] Pulse Oximetry 94 91 Oxygen Delivery Me thod Oxygen Flow Rate 09/09/24 05:31 09/09/24 05:41 09/09/24 05:56 Temperature Pulse Rate Pulse Rate [Pulse Oximeter] 148 H 150 H 147 H Pulse Rate [Right Pulse Oximeter] Respiratory Rate Blood Pressure [Ri ght Arm] 141/101 H 117/73 103/92 H Blood Pressure [Ri ght Upper Arm] Pulse Oximetry Oxygen Delivery Me thod Oxygen Flow Rate 09/09/24 06:00 09/09/24 06:23 09/09/24 06:30 Temperature 100.0 F H Pulse Rate Pulse Rate [Pulse Oximeter] 125 H 149 H Pulse Rate [Right Pulse Oximeter] Respiratory Rate Blood Pressure [Ri ght Arm] 103/92 H 124/96 H Blood Pressure [Ri ght Upper Arm] Pulse Oximetry Oxygen Delivery Me thod Oxygen Flow Rate 09/09/24 06:39 09/09/24 06:45 09/09/24 07:00 Temperature Pulse Rate 87 Pulse Rate [Pulse Oximeter] 91 92 Pulse Rate [Right Pulse Oximeter] Respiratory Rate Blood Pressure [Ri ght Arm] 111/69 100/65 Blood Pressure [Ri ght Upper Arm] Pulse Oximetry Oxygen Delivery Me thod Oxygen Flow Rate 09/09/24 07:40 09/09/24 08:00 09/09/24 08:00 Temperature 100.1 F H Pulse Rate 92 Pulse Rate [Pulse Oximeter] 90 90 Pulse Rate [Right Pulse Oximeter] Respiratory Rate 20 20 Blood Pressure [Ri ght Arm] 112/75 Blood Pressure [Ri ght Upper Arm] Pulse Oximetry 93 Oxygen Delivery Me thod Room Air Oxygen Flow Rate 09/09/24 11:46 Temperature 99.6 F Pulse Rate Pulse Rate [Pulse Oximeter] 88 Pulse Rate [Right Pulse Oximeter] Respiratory Rate 16 Blood Pressure [Ri ght Arm] 125/76 Blood Pressure [Ri ght Upper Arm] Pulse Oximetry 92 Oxygen Delivery Me thod Room Air Oxygen Flow Rate Labs Labs: Laboratory Results - last 24 hr 09/08/24 09/08/24 09/08/24 21:40 21:57 23:55 WBC 11.30 H RBC 5.36 Hgb 16.1 Hct 52.9 MCV 99 MCH 30 MCHC 30 L RDW Coeff of Bettye 14.0 Plt Count 186 Neut % (Auto) 89.4 H Lymph % (Auto) 4.1 L [place] % (Auto) 5.8 Eos % (Auto) 0.2 Baso % (Auto) 0.2 Neut # (Auto) 10.10 H Lymph # (Auto) 0.50 L [place] # (Auto) 0.70 Eos # (Auto) 0.00 Baso # (Auto) 0.00 Abs Immat Gran (auto) 0.00 Imm/Tot Granulo (auto) 0.3 INR APTT VBG pH VBG pCO2 VBG pO2 VBG HCO3 Sodium 158 H 157 H Potassium 4.1 3.4 L Chloride 118 H 119 H Carbon Dioxide 30 29 Anion Gap 10 9 BUN 55 H 56 H Creatinine 1.6 H 1.5 Estimated Creat Clear 45.81 48.86 Estimated GFR 46 49 Glucose 143 H 168 H Lactate 2.1 H 2.1 H Calcium 9.8 9.4 NT-Pro-B Natriuret Pep 63 SARS-CoV-2 (PCR) POSITIVE SARS-CoV-2 A Influenza Type A (PCR) Negative PCR FLU A Influenza Type B (PCR) Negative PCR FLU B RSV (PCR) Negative PCR RSV 09/09/24 09/09/24 09/09/24 03:00 06:30 11:00 WBC 10.42 10.07 RBC 4.94 4.76 Hgb 14.8 14.5 Hct 49.4 47.8 MCV 100 100 MCH 30 31 MCHC 30 L 30 L RDW Coeff of Bettye 14.2 14.2 Plt Count 195 172 Neut % (Auto) 85.4 H 79.9 H Lymph % (Auto) 7.4 L 9.5 L [place] % (Auto) 6.7 10.1 Eos % (Auto) 0.1 0.2 Baso % (Auto) 0.2 0.1 Neut # (Auto) 8.90 H 8.00 H Lymph # (Auto) 0.80 L 1.00 [place] # (Auto) 0.70 1.00 H Eos # (Auto) 0.01 0.02 Baso # (Auto) 0.02 0.01 Abs Immat Gran (auto) 0.02 0.02 Imm/Tot Granulo (auto) 0.2 0.2 INR 1.23 H APTT 28 VBG pH 7.388 VBG pCO2 49 VBG pO2 < 30.1 VBG HCO3 30 H Sodium 156 H 155 H 155 H Potassium 3.6 3.6 3.4 L Chloride 119 H 119 H 120 H Carbon Dioxide 28 28 26 Anion Gap 9 8 9 BUN 58 H 52 H 46 H Creatinine 1.5 1.5 1.5 Estimated Creat Clear 48.86 47.77 47.77 Estimated GFR 49 49 49 Glucose 148 H 105 128 H Lactate Calcium 9.4 8.4 8.7 NT-Pro-B Natriuret Pep 74 SARS-CoV-2 (PCR) Influenza Type A (PCR) Influenza Type B (PCR) RSV (PCR) Ordering Physician: Mirlande Quintero MD Date of Service: 09/09/24 Procedure(s): CT angio chest PE protocol Accession Number(s): [id number] cc: Deepak Meyer M.D.; Mirlande Quintero MD~ For Patients: As a result of the 21st Century Cures Act, medical imaging exams and procedure reports are released immediately into your electronic medical record. You may view this report before your referring provider. If you have questions, please contact your health care provider. INDICATION: Hypoxia and aspiration, rule out PE. COMPARISON: Chest radiograph 09/09/2024 and 09/08/2024 TECHNIQUE: CT angiogram chest with contrast, pulmonary embolism protocol. Multiplanar axial, coronal, and sagittal reformats are included. MIP images to improve detection of pulmonary emboli are included. Intravenous contrast: 95 mL Isovue 370. Technologist indicates patient unable to raise arms or follow breathing instructions for this examination. Exam remains diagnostic for the intended purposes. FINDINGS: PE: Well-timed contrast bolus. No pulmonary emboli. Normal caliber main pulmonary artery. Normal sized right heart chambers. Small volume reflux of contrast below the diaphragm. Airway: Expiratory appearance of the trachea. Lungs: Expiratory appearance of the lungs. There is a focal consolidation in the right upper lobe that measures about 4 centimeters. No other discrete nodules are visible.. There is bibasilar atelectasis. No pulmonary edema or emphysema. Pleura: No pleural effusion. No pneumothorax. Lymph nodes: No thoracic adenopathy. Mediastinum: No pneumomediastinum. No mass. Heart and great vessels: No pericardial effusion. Normal cardiac chamber size. No calcified atherosclerotic plaques. No aortic aneurysm. Chest wall: Normal. No masses. Upper abdomen: There are bilateral renal cysts. The cyst on the right is not fully included in the field of view and measures at least 6.5 centimeters. The largest cyst within the field of view on the left measures 4 centimeters. Renal parenchyma appears relatively normal otherwise without thinning in the upper poles. Bones: No fractures. No focal bone lesions. IMPRESSION: 1. No pulmonary embolism. 2. Right upper lobe pneumonia. No cavitation or necrosis. No parapneumonic effusion. Please note that all CT scans at this facility use dose modulation, iterative reconstruction, and/or weight-based dosing when appropriate to reduce radiation dose to as low as reasonably achievable. Dictated by Jennifer Fernandez MD @ 09/09/2024 6:54:57 AM (Electronically Signed)
[2024-09-09 16:04] LABS: Lactate* 2.8 mmol/L (0.5-1.9)
[2024-09-09] MEDS: AZITHROMYCIN 500 MG in 0.9 % SODIUM CHLORIDE 250 ml 250 ML 255 MG IVPB (16:21)
--- NOTE | 2024-09-09 16:54 | PC.SOCIAL ---
Discharge planning: bridge maintenance worker will plan to complete social and political studies professor assessment with pt's daughter/POA tomorrow(Sunday) via phone. Pt's may also want to be included. Social work to follow-up as needed.
[2024-09-09 17:07] LABS: Sodium* 153 mmol/L (135-149)
[2024-09-09] MEDS: cefTRIAXone 1 GM in 0.9 % SODIUM CHLORIDE Mini-bag 100 ML IVPB (17:28)
[2024-09-09] MEDS: VANCOMYCIN 2 GM/400 ML 2 GM/400 ML PIGGYBACK IVPB (18:18)
[2024-09-09 20:01] LABS: Sodium* 155 mmol/L (135-149)
[2024-09-10] VITALS (12 sets, daily range): BP systolic 104–152; BP diastolic 65–88; PULSE 70–86; RESP 18–21; TEMP 36.9–37.7; O2SAT 91–98
[2024-09-10] MEDS: 5 % DEXTROSE 1000 ML 1,000 ML 100 ML IV ×2 (02:03→11:56)
[2024-09-10 06:43] LABS: Basophils Absolute Auto 0.02 K/uL (0.00-0.30); Basophils Percent Auto 0.2 % (0.0-3.0); Eosinophils Absolute Auto 0.03 K/uL (0.00-0.50); Eosinophils Percent Auto 0.3 % (0.0-7.0); Hematocrit 49.9 % (37.0-53.0); Hemoglobin* 15.3 gm/dL (13.5-17.5); Immature Granulocytes Abs Auto 0.02 K/uL (0.00-0.30); Immature Granulocytes Pct Auto 0.2 %; Mean Corpuscular HGB Conc 31 gm/dL (32-36); Mean Corpuscular Hemoglobin 31 pg (26-34); Mean Corpuscular Volume 100 fL (80-100); Neutrophils Percent Auto 81.3 % (42.0-72.0); Platelet Count* 162 K/uL (140-440); RDW Coefficient of Variation % 14.2 % (11.5-15.5); Red Blood Count 5.01 m/uL (4.30-5.90); White Blood Count* 9.38 K/uL (4.50-11.00)
[2024-09-10 06:49] LABS: Slide Review Reflex No
--- NOTE | 2024-09-10 07:01 | PC.NURSE ---
Shift note ([id number]): Patient non-verbal. Makes eye contact when spoken to. Given PRN Tylenol suppository for temp of 100.4. Temp 98.6 at 0545. Patient was suctioned due to increased secretions and unable to clear on own. No noted discomfort.?
[2024-09-10 07:09] LABS: Chloride* 117 mmol/L (96-114)
[2024-09-10 07:10] LABS: Potassium* 3.7 mmol/L (3.6-5.1); Sodium* 154 mmol/L (135-149)
[2024-09-10 07:12] LABS: Anion Gap 9 mEq/L (7-15); Carbon Dioxide* 28 mmol/L (20-32); Creatinine* 1.2 mg/dL (0.5-1.5); Est. Creatinine Clearance* 60.02; Estimated Glomerular Filt Rate 64 ml/min
[2024-09-10 07:13] LABS: Blood Urea Nitrogen* 36 mg/dL (7-30); Calcium* 8.6 mg/dL (8.4-10.6); Glucose* 118 mg/dL (60-115)
--- NOTE | 2024-09-10 11:34 | RESP.RT ---
Pt seen to NT suction per RN request. Notified provider I would be doing this once. We are in agreement this is not a sustainable group home solution. Pre oxygenated with 100% FIO2 SPO2 100% HR 83 NT suctioned 2 times without any resistance or gag reflex. Suctioned for large amount of thick creamy sputum. Oximeter reading 96% HR 93 Post oxygenation On 5L after procedure for 20 minutes. Oximeter reading 100% HR 85. Followed up with Chest pummeling for 10 minutes. Dimitri well. BBS with improvement post sx, still scattered Rhonchi throughout.
[2024-09-10] MEDS: 0.45 % SODIUM CHLORIDE 1000 ML 1,000 ML 75 ML IV (12:22)
[2024-09-10] MEDS: ACETAMINOPHEN 650 MG SUPP PR ×2 (12:28→18:45)
[2024-09-10 14:33] LABS: Sodium* 148 mmol/L (135-149)
[2024-09-10 14:35] LABS: INR 1.23 (0.91-1.10); Prothrombin Time 16.3 Seconds
[2024-09-10] MEDS: AZITHROMYCIN 500 MG in 0.9 % SODIUM CHLORIDE 250 ml 250 ML 255 MG IVPB (16:31)
--- NOTE | 2024-09-10 17:36 | P.IMPN_ITS ---
Progress Note: A&P Assessment and plan (1) Aspiration into airway: Problem details: - Continues to aspirate. Family aware that this is the case. They understand that feeding tube does not change risk of aspiration. They do not want feeding tube. They would like to feed him. Discussed with speech therapy, who noted for comfort we can try moderately thick liquids, pureed diet, any swabs should be given with moderately thick liquids. Status: Acute (2) Pneumonia: Problem details: - probable aspiration vs community acquired pneumonia - start ceftriaxone, azithromycin, vancomycin Status: Acute (3) Hypernatremia: Problem details: Patient likely has severe thirst from a sodium of 158 which he cannot communicate due to dementia. Also unable to independently obtain fluids to relieve his thirst. He requires a caregiver to provide fluids by putting them up to his mouth. Not just making them readily available. Likely will correct hypernatremia if offered free water. He has probably had this problem for several days while he has been in respite care so correction of sodium should be at or less than 12 millimoles per L per day - 09/09 Na 155 x two checks. Restart IV D5W and increase rate to 100cc/hr. Will recheck Na and then also add maintenance IVF as he is NPO - 09/10 Initial Na 154. By this afternoon, Na decreased to 148. D5W stopped. Changing to maintenance IVF of LR @ 75cc/hr Status: Resolved (4) Atrial fibrillation with RVR: Problem details: - occurred 09/09 am after aspiration event, new diagnosis - converted back to NSR - patient has h/o falls, understands risk of stroke without anticoagulation and would like to hold on starting anticoag due to risk outweighing benefit Status: Acute (5) COVID-19: Problem details: Has cough and congestion and possibly findings on chest x-ray of interstitial fluid representing viral pneumonia. Consider steroids if requiring oxygen - does not want him to get remdesivir or paxlovid Status: Acute (6) NANCY (acute kidney injury): Problem details: Likely pre renal NANCY due to patient's inability to communicate thirst or obtain water. - 09/09 Continue IVF, recheck - 09/10 Improving. Decrease IVF to maintenance. Allow PO intake according to spee ch therapy recommendations with understanding of high likelihood of aspiration. Status: Acute (7) Palliative care encounter: Problem details: - Per Lai: I initiated but did not complete a conversation with his daughter about goals of care and palliative care in a nonverbal patient with severe dementia who is unable to indicate hunger or thirst or initiate getting food or water. 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 Now nonverbal, not able to indicate hunger or thirst. palliative care discussions as above Status: Chronic (9) Hypertension: Problem details: He takes amlodipine p.r.n. for elevated blood pressures. Does not take it most days. May not need blood pressure treatment Status: Chronic (10) Hypotension: Problem details: - during afib with RVR Status: Resolved (11) Hypokalemia: Problem details: - unable to take PO - replace IV, monitor Status: Resolved Time Spent With Patient Total time spent: Today I spent 75 minutes seeing the patient, discussing care with the patient's family, reviewing Expanse and EPIC notes/diagnostics/labs, discussing the care plan with our care team that includes speech therapy, social work, PT/OT, pharmacy, RT, senior living and documenting my impressions and plan in the medical record. Subjective Time Seen by Provider: 10:22 Date Seen: 09/10/24 Interval history: and daughter at bedside. Daughter initially upset and concerned that we are trying to just make him comfort cares and not understanding that there may be a chance of recovery. We discussed quality of life, comfort, options for treatment vs comfort cares vs middle of the road approach. noted that sons would like patient to be only comfort care and daughters would like everything done. notes how difficult it has been to care for patient and that taking him home on hospice would be intense for her. Discussed poor short term and bed bug exterminator prognosis. Discussed high risk of aspiration, stroke, AFib with RVR, hypotension. Patient's family demonstrated understanding. I spoke with again later in the day. Rogelio's sister was also there. noted that they were not ready to move forward with comfort cares only or even some comfort meds yet. Wanted to discuss again tomorrow. Wants him to still get IVF and lab draws. Exam Narrative: Exam Narrative: General: Laying in bed with the head of bed up, staring straight ahead. Flushed. Awake, alert, nonverbal. He looks at me when I talk, but makes no other response. Strokes daughter's hand and plays with her sleeve. Audible crackles and gurgling. No attempts to cough. Oropharynx: Clear. Mucous membranes dry. Cardiovascular: Regular rate and rhythm. No murmurs, gallops, or rubs. Respiratory: Coarse and junky. Abdomen: Bowel sounds present. Soft, nondistended, nontender. Extremities: No lower extremity edema. Const: Vital Signs, click to edit/add: Vital Signs - 24 hr 09/09/24 19:00 09/09/24 22:45 09/09/24 23:00 Temperature 100.4 F H 100 F H 100.0 F H Pulse Rate Pulse Rate [Pulse Oximeter] 96 92 Respiratory Rate 20 Blood Pressure [Ri ght Arm] 129/78 116/69 Pulse Oximetry 94 93 Oxygen Delivery Me thod Room Air Room Air 09/09/24 23:40 09/10/24 04:10 09/10/24 05:49 Temperature 99.0 F 98.6 F Pulse Rate 84 Pulse Rate [Pulse Oximeter] 86 Respiratory Rate 21 Blood Pressure [Ri ght Arm] 116/86 Pulse Oximetry 93 Oxygen Delivery Sd thod Room Air 09/10/24 07:00 09/10/24 08:00 09/10/24 11:00 Temperature 98.4 F 99.8 F H Pulse Rate 85 Pulse Rate [Pulse Oximeter] 86 82 Respiratory Rate 20 18 Blood Pressure [Ri ght Arm] 152/76 H 148/88 H Pulse Oximetry 96 98 Oxygen Delivery Sd thod Room Air Room Air 09/10/24 12:28 09/10/24 14:30 09/10/24 15:00 Temperature 99.8 F H 99.3 F 98.6 F Pulse Rate Pulse Rate [Pulse Oximeter] 75 Respiratory Rate 18 Blood Pressure [Ri ght Arm] 138/87 Pulse Oximetry 96 Oxygen Delivery Sd thod Room Air 09/10/24 17:08 Temperature Pulse Rate 73 Pulse Rate [Pulse Oximeter] Respiratory Rate Blood Pressure [Ri ght Arm] Pulse Oximetry Oxygen Delivery Me thod Labs Labs: Laboratory Results - last 24 hr 09/09/24 09/10/24 09/10/24 19:40 06:18 14:15 WBC 9.38 RBC 5.01 Hgb 15.3 Hct 49.9 MCV 100 MCH 31 MCHC 31 L RDW Coeff of Bettye 14.2 Plt Count 162 Neut % (Auto) 81.3 H Lymph % (Auto) 11.0 L [place] % (Auto) 7.0 Eos % (Auto) 0.3 Baso % (Auto) 0.2 Neut # (Auto) 7.60 H Lymph # (Auto) 1.00 [place] # (Auto) 0.70 Eos # (Auto) 0.03 Baso # (Auto) 0.02 Abs Immat Gran (auto) 0.02 Imm/Tot Granulo (auto) 0.2 INR 1.23 H Sodium 155 H 154 H 148 Potassium 3.7 Chloride 117 H Carbon Dioxide 28 Anion Gap 9 BUN 36 H Creatinine 1.2 Estimated Creat Clear 60.02 Estimated GFR 64 Glucose 118 H Calcium 8.6
[2024-09-10] MEDS: cefTRIAXone 1 GM in 0.9 % SODIUM CHLORIDE Mini-bag 100 ML IVPB (17:58)
[2024-09-10] MEDS: VANCOMYCIN 1.25 GM/250 ML 1.25 GM/250 ML PIGGYBACK IVPB (18:44)
--- NOTE | 2024-09-10 19:42 | PC.NURSE ---
shift note: small stage 1 ulcer noted at upper lt buttock. redness noted on pt's mid buttocks. cream and turning pt q1hr. IV patent. temp high today 99.8 axillary. pt received tylenol supp x2.
[2024-09-11] VITALS (7 sets, daily range): BP systolic 108–151; BP diastolic 76–80; PULSE 80–100; RESP 18–20; TEMP 37.6–39.5; O2SAT 92–93
[2024-09-11] MEDS: LACTATED RINGERS 1000 ML 1,000 ML 75 ML IV (02:39)
[2024-09-11] MEDS: PIPERACILLIN/TAZOBACTAM 3.375 GM in 0.9 % SODIUM CHLORIDE Mini-bag 100 ML IVPB ×2 (05:36→10:58)
--- NOTE | 2024-09-11 06:51 | PC.NURSE ---
The patient is nonverbal, and very stiff during cares. Heavy assist of 2 to turn and reposition throughout the night. Febrile middle of the night @103.... was notified and new orders for Zosyn were obtained and PRN Tylenol suppository was given. The patients sister stayed the night. Incontinent of bowel and bladder this shift. Iv patent in L AC. Call light within reach and alarms are on. Naheed BRIONES BSN
[2024-09-11 06:57] LABS: Chloride* 115 mmol/L (96-114)
[2024-09-11 06:58] LABS: Potassium* 3.2 mmol/L (3.6-5.1); Sodium* 144 mmol/L (135-149)
[2024-09-11 07:00] LABS: Creatinine* 0.9 mg/dL (0.5-1.5); Est. Creatinine Clearance* 72.61; Estimated Glomerular Filt Rate 91 ml/min
[2024-09-11 07:01] LABS: Anion Gap 8 mEq/L (7-15); Blood Urea Nitrogen* 24 mg/dL (7-30); Calcium* 8.2 mg/dL (8.4-10.6); Carbon Dioxide* 21 mmol/L (20-32); Glucose* 97 mg/dL (60-115)
[2024-09-11 07:04] LABS: Basophils Absolute Auto 0.01 K/uL (0.00-0.30); Basophils Percent Auto 0.1 % (0.0-3.0); Eosinophils Absolute Auto 0.11 K/uL (0.00-0.50); Eosinophils Percent Auto 1.4 % (0.0-7.0); Hematocrit 43.8 % (37.0-53.0); Immature Granulocytes Abs Auto 0.02 K/uL (0.00-0.30); Immature Granulocytes Pct Auto 0.2 %; Lymphocytes Percent Auto 10.3 % (20-44); Mean Corpuscular HGB Conc 32 gm/dL (32-36); Mean Corpuscular Hemoglobin 31 pg (26-34); Mean Corpuscular Volume 95 fL (80-100); Monocytes Percent Auto 5.5 % (0.0-11.0); Neutrophils Percent Auto 82.5 % (42.0-72.0); Platelet Count* 151 K/uL (140-440); RDW Coefficient of Variation % 13.6 % (11.5-15.5); Red Blood Count 4.59 m/uL (4.30-5.90); White Blood Count* 8.07 K/uL (4.50-11.00)
[2024-09-11 07:07] LABS: Slide Review Reflex No
--- NOTE | 2024-09-11 09:51 | PM.IMPN1 ---
Progress Note: A&P Assessment and plan (1) Palliative care encounter: Problem details: - multiple discussions with family during stay - advancing to comfort cares 09/11/24, plan as of 09/11 is to [facility] Status: Acute (2) COVID-19: Problem details: - cough and congestion and possibly findings on CXR of interstitial fluid representing viral pneumonia - does not want him to get remdesivir or Paxlovid Status: Acute (3) Aspiration into airway: Problem details: - Continues to aspirate, family aware - feed prn while on comfort cares Status: Acute (4) Pneumonia: Problem details: - probable aspiration vs community acquired pneumonia - was initiated on ceftriaxone, azithromycin - > escalated to vancomycin and Zosyn with positive blood cultures Status: Acute (5) Hypernatremia: Problem details: - admission sodium of 158, improved with IVFs Status: Resolved (6) 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 Comorbidities include frontotemporal dementia, HTN, and a fib. Since stay, has been on IVFs and IV antibiotics. Family has been considering comfort cares, ready for this transition today. Met with , children, sisters to discuss plan of care. Exam Narrative: Exam Narrative: Patient is laying comfortably in bed, sleeping Nonresponsive to touch or voice Pulse palpates as regular rate rhythm Const: Vital Signs, click to edit/add: Vital Signs - 24 hr 09/10/24 11:00 09/10/24 12:28 09/10/24 14:30 Temperature 99.8 F H 99.8 F H 99.3 F Pulse Rate Pulse Rate [Pulse Oximeter] 82 Respiratory Rate 18 Blood Pressure [Le ft Arm] Blood Pressure [Ri ght Arm] 148/88 H Pulse Oximetry 98 Oxygen Delivery Me thod Room Air 09/10/24 15:00 09/10/24 15:00 09/10/24 17:08 Temperature 98.6 F Pulse Rate 73 Pulse Rate [Pulse Oximeter] 75 75 Respiratory Rate 18 18 Blood Pressure [Le ft Arm] Blood Pressure [Ri ght Arm] 138/87 Pulse Oximetry 96 Oxygen Delivery Nh thod Room Air 09/10/24 18:45 09/10/24 19:00 09/10/24 23:00 Temperature 98.9 F 98.8 F 99.3 F Pulse Rate Pulse Rate [Pulse Oximeter] 70 Respiratory Rate 18 18 Blood Pressure [Le ft Arm] Blood Pressure [Ri ght Arm] 133/72 104/65 Pulse Oximetry 91 95 Oxygen Delivery Nh thod Room Air Room Air 09/11/24 03:00 09/11/24 05:39 09/11/24 07:00 Temperature 103.1 F H 100.5 F H Pulse Rate Pulse Rate [Pulse Oximeter] 95 100 Respiratory Rate 18 18 Blood Pressure [Le ft Arm] Blood Pressure [Ri ght Arm] 151/80 H Pulse Oximetry 93 Oxygen Delivery Nh thod Room Air 09/11/24 07:00 Temperature 99.6 F Pulse Rate Pulse Rate [Pulse Oximeter] 100 Respiratory Rate 20 Blood Pressure [Le ft Arm] 108/76 Blood Pressure [Ri ght Arm] Pulse Oximetry 92 Oxygen Delivery Nh thod Room Air Labs Labs: Laboratory Results - last 24 hr 09/10/24 09/10/24 09/11/24 06:18 14:15 06:38 WBC 8.07 RBC 4.59 Hgb 14.0 Hct 43.8 MCV 95 MCH 31 MCHC 32 RDW Coeff of Bettye 13.6 Plt Count 151 Neut % (Auto) 82.5 H Lymph % (Auto) 10.3 L Shackelford % (Auto) 5.5 Eos % (Auto) 1.4 Baso % (Auto) 0.1 Neut # (Auto) 6.70 Lymph # (Auto) 0.80 L Shackelford # (Auto) 0.40 Eos # (Auto) 0.11 Baso # (Auto) 0.01 Abs Immat Gran (auto) 0.02 Imm/Tot Granulo (auto) 0.2 INR 1.23 H Sodium 148 144 Potassium 3.2 L Chloride 115 H Carbon Dioxide 21 Anion Gap 8 BUN 24 Creatinine 0.9 Estimated Creat Clear 72.61 Estimated GFR 91 Glucose 97 Calcium 8.2 L
[2024-09-11] MEDS: ACETAMINOPHEN 650 MG SUPP PR ×2 (11:51→22:27)
--- NOTE | 2024-09-11 13:08 | PC.SOCIAL ---
Addendum entered by RADHA Arnett 09/11/24 14:53: Discharge planning: spray worker provided pt's sister Nelida(pt's and daughters were very upset and praying and did not want to be disturbed) with the updated pricing for [facility] with the new year, which is as follows: Rent = $2,000/month Care & Services = $15,250/month; [facility] would need 7 days worth of payment at time of admission. spray worker also provided pt's sister Nelida with information brochures on [facility] and [facility]. spray worker provided pt's sister Nelida with this worker's contact information. The family will call this worker with any questions they may have throughout the rest of the day today. Otherwise, this worker will plan to check-in with the family on Sunday morning, as they are in need of time to process all of this information and the prognosis for the pt. Social work to follow-up as needed. Original Note: Discharge planning: spray worker met with pt's , Christina, and pt's two sisters today to talk about hospice services. Pt's was provided a list of Area [facility]gencies and asked this worker for more information on [facility] and [facility]. Pt's family also have interest in [facility]. spray worker spoke to Brigid at [facility] whom shared she would have a male bed opening on Sunday. spray worker shared bed availability information for [facility] with pt's . Brigid stated that cost for [facility] for hospice care has changed with the new . Worker is waiting to get the cost information from Brigid and will share that with the pt's family. spray worker will also provide the pt's family with informational packets on [facility] and [facility]. Social work to follow-up as needed.
--- NOTE | 2024-09-11 17:21 | PC.NURSE ---
Nursing Care Hours: [id number] Pt this shift calm and alert. Non verbal and non cooperative with turning and repositioning. Pt becomes tense and and grabs onto staff arms or hands tightly. Non combative. Open area to R and L glute, superficial. Area cleaned and protective ointment applied. BM x3 incontinent, loose. Not taking in any PO fluids or food. Stable on RA. Fever of 101.7 treated with suppository Tylenol. IV occluded. Left in and reported to oncoming nurse to remove, fluids dc'd. Moist cough noted but pt content, no distress.
[2024-09-11] MEDS: HYOSCYAMINE SULFATE 0.125 MG TAB SUBLINGUAL (22:03)
[2024-09-11] MEDS: MORPHINE 10 MG/0.5 ML ORAL SOLN PO (22:04)
--- NOTE | 2024-09-11 23:38 | PC.NURSE ---
Pt alert to name. Checked and changed throughout shift. BM in loose and moderate. Pt febrile, prn tylenol given. Cough present and moist. Pt behavior indicated pain, prn morphine given. Sister at bedside.
--- NOTE | 2024-09-12 06:28 | PC.NURSE ---
End of shift [id number]: Pt alert to name. Repo and assessed brief. Gown changed, brief changed, sheets changed. Family member requested temp to be taken: 99.2. Intermittent cough present. Pts behavior has not indicated pain. Pt slept for majority of shift. Sister at bedside. Call light in reach. ?
[2024-09-12] MEDS: MORPHINE 10 MG/0.5 ML ORAL SOLN PO ×4 (07:27→21:01)
--- NOTE | 2024-09-12 12:12 | PM.IMPN1 ---
Progress Note: A&P Assessment and plan (1) Palliative care encounter: Problem details: - multiple discussions with family during stay - advancing to comfort cares 09/11/24 - initial plan was to transition from the hospital to [facility], but [facility] has since indicated that since he is COVID positive they cannot receive until 10 days after he was diagnosed, which would be 09/18/2024 - plan for now is for patient to stay in the hospital receiving palliative support until such time as a safe discharge disposition plan can be established Status: Acute (2) COVID-19: Problem details: - cough and congestion and possibly findings on CXR of interstitial fluid representing viral pneumonia - does not want him to get remdesivir or Paxlovid Status: Acute (3) Aspiration into airway: Problem details: - Continues to aspirate, family aware - feed prn while on comfort cares Status: Acute (4) Pneumonia: Problem details: - probable aspiration vs community acquired pneumonia - was initiated on ceftriaxone, azithromycin - > escalated to vancomycin and Zosyn with positive blood cultures - paradigm of care changed to comfort focus measures only on 09/11/2024 Status: Acute (5) Hypernatremia: Problem details: - admission sodium of 158, improved with IVFs Status: Resolved (6) 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 Continue with current level of palliative support as established 09/11/2024 2. is agreeable with above stated plans and recommendations Time Spent With Patient Total time spent: 30 minutes Subjective Date Seen: 09/12/24 Interval history: Flynn was admitted to the hospital on 09/08/23 for weakness, pneumonia, and hypernatremia in the setting of COVID infection. Comorbidities include frontotemporal dementia, HTN, and a fib. Initially on IVFs and IV antibiotics. After discussion on 09/11/2024 with , children, sisters the decision was made to transition to comfort focus treatments only. 09/12/2024: I met with 1 of his sisters today. I spoke with his via telephone today. They continue to be steadfast in their desired to focus on comfort measures only at this time. Patient is not interactive. Exam Narrative: Exam Narrative: Examined patient in his hospital room. Appears comfortable laying on his right side. Does not engage in any meaningful dialogue. Periodically opens eyes momentarily looks at me and then closes his eyes. Const: Vital Signs, click to edit/add: Vital Signs - 24 hr 09/11/24 15:00 09/11/24 22:27 Temperature 100.1 F H Pulse Rate [Pulse Oximeter] 80 Respiratory Rate 18
--- NOTE | 2024-09-12 13:10 | PC.SOCIAL ---
Addendum entered by RADHA Arnett 09/12/24 16:19: Discharge planning: Pt has been accepted to [facility] with hospice on 09/18/24(10 days post COVID diagnosis date). [facility] does not offer thickened liquids or pureed diet(which is what the speech evaluation recommended for diet for the pt). The pt has not been eating(NPO) while in the hospital and the pt's family will give him swabs of juice, at times, which is the plan that will continue when he goes to [facility]. At [facility], the family can give the pt food, but cannot expect the [facility] staff to feed/give the pt anything if they were to leave for a period of time. plant care worker did check-in with several other area [facility] that offer long-term care with hospice in place to see if they would accept a COVID positive pt coming on hospice who would need a long-term care bed. [facility] in [place] said they take COVID positive pt's that do not need to be 10 days post COVID diagnosis; however, they have no availability before of next week to accommodate this, as they have no LTC beds available. plant care worker talked to Otilio with [facility] who stated that pt's need to be 10 days post their COVID diagnosis date for them to accept and they need to be able to place them in a private room with a private bathroom(isolation) room to accommodate that. plant care worker also left a message with Anel from [facility] to ask about her facilities, but has not heard back. Social work to follow-up as needed. Original Note: Discharge planning: Pt's family decided they would like to transition pt to [facility] with hospice when able. Pt's family is in agreement with the cost of the care at [facility]. Pt was diagnosed with COVID on 09/08/2024. plant care worker clarified with Brigid in Admissions at [facility] if there was a waiting period before pt could be admitted there due to his COVID diagnosis and Brigid confirmed that they would have to wait ten days from pt's positive test date to admit the pt, which would be 09/18/2024, next . plant care worker did secure email a referral to Brigid at [facility] to review this morning due to family still wanting pt to transition to [facility] when able. Brigid is currently reviewing the referral. plant care worker updated the provider on duty with the COVID post date wait time that is required. Social work to follow-up as needed.
--- NOTE | 2024-09-12 13:54 | PC.NURSE ---
Pt on comfort cares. Pt repositioned Q2H. Pt has a small reddened area on left buttock, Pt positioned side to side to releave pressure. Pt given pain medications; see EMAR. Pt family at bedside.
--- NOTE | 2024-09-12 14:33 | PC.NURSE ---
discussed with family and provider, patient agitiated with turns, we will only turn if soiled and patient needs them. Otherwise patient comfortable at tis time.
[2024-09-12 15:00] VITALS: RESP 18
--- NOTE | 2024-09-12 22:20 | PC.NURSE ---
Pt resting comfortably this evening. Morphine given PRN (See EMAR). External Cath placed earlier in the day and working appropriately. Turn and Repo Q2. Ice chips given gradually.
[2024-09-12 22:25] VITALS: TEMP 36.6
[2024-09-13] MEDS: MORPHINE 10 MG/0.5 ML ORAL SOLN PO ×9 (00:28→21:33)
--- NOTE | 2024-09-13 06:21 | PC.NURSE ---
Pt remained Comfortable all night. Ext Cath working properly. Family in room. Turn and repo Q2. Morphine given per family request Q3. Afebrile. Pt chewing and swallowing ice chips. Pt appears very comfortable and not in distress.
--- NOTE | 2024-09-13 14:05 | PM.IMPN1 ---
Progress Note: A&P Assessment and plan (1) Palliative care encounter: Problem details: - advanced to comfort cares 09/11/24 - plan was to transition from the hospital to [facility], (since he is COVID positive they cannot receive until 10 days after diagnosis, which would be 09/18/24) Status: Acute (2) COVID-19: Problem details: - cough and congestion and possibly findings on CXR of interstitial fluid representing viral pneumonia - does not want him to get remdesivir or Paxlovid Status: Acute (3) Aspiration into airway: Problem details: - Continues to aspirate, family aware - feed prn while on comfort cares Status: Acute (4) Pneumonia: Problem details: - probable aspiration vs community acquired pneumonia - was initiated on ceftriaxone, azithromycin - > escalated to vancomycin and Zosyn with positive blood cultures - paradigm of care changed to comfort focus measures only on 09/11/2024 Status: Acute (5) Hypernatremia: Problem details: - admission sodium of 158, improved with IVFs Status: Resolved (6) 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 Comorbidities include frontotemporal dementia, HTN, and a fib. During stay, transitioned to comfort-focused measures on 09/11. Plans to d/c to [facility] with hospice next week. Family at bedside. Patient nonverbal, intermittently aspirating during feedings. Does not appear uncomfortable. Exam Narrative: Exam Narrative: Sitting up in bed, was having a mild aspiration event. Cleared during my visit. Minimally interactive. Const: Vital Signs, click to edit/add: Vital Signs - 24 hr 09/12/24 15:00 09/12/24 22:25 Temperature 97.9 F Respiratory Rate 18
[2024-09-13] MEDS: HYOSCYAMINE SULFATE 0.125 MG TAB SUBLINGUAL (16:04)
[2024-09-13] MEDS: diphenhydrAMINE 12.5 MG/5 ML ORAL SOLN 25 MG PO (16:52)
[2024-09-13] MEDS: diphenhydrAMINE 25 MG CAPSULE PO (17:29)
[2024-09-13] MEDS: ACETAMINOPHEN 650 MG SUPP PR (18:45)
--- NOTE | 2024-09-13 19:39 | PC.NURSE ---
end of shift. pt has been pleasant he is non verbal. he is getting po pain and other po meds. he aspirated on ice cream today when family was feeding him,. he was suctioned and md was in the room. shandra wick suction is on. Family in room. Turn and repo Q2-3 and meds given at this times. later he was warm and was given turned. . Afebrile. Pt chewing and swallowing ice chips. had alot of conservations with family. he is on comfort cares and covid precautions. asked family yo wear a masking in the halls. they also got a comfort tray
--- NOTE | 2024-09-13 22:59 | PC.NURSE ---
Shift note: Pt changed reposition Q2h. Appeared comfortable and has been sleeping throughout the shift. PRN given to keep patient comfortable.No SOB. Throat suctioned 1x. Family has been in the room throughout the shift. Family were concern about Morphine and Haloperidol side effect. Education given.
[2024-09-14] MEDS: MORPHINE 10 MG/0.5 ML ORAL SOLN PO ×8 (00:27→23:35)
[2024-09-14] MEDS: HYOSCYAMINE SULFATE 0.125 MG TAB SUBLINGUAL (09:15)
--- NOTE | 2024-09-14 14:39 | P.IMPN_ITS ---
Progress Note: A&P Assessment and plan (1) Palliative care encounter: Problem details: - advanced to comfort cares 09/11/24 - plan was to transition from the hospital to [facility], (since he is COVID positive they cannot receive until 10 days after diagnosis, which would be 09/18/24) Status: Acute (2) COVID-19: Problem details: - symptoms: cough/congestion, no COVID specific therapies Status: Acute (3) Aspiration into airway: Problem details: - Continues to aspirate, family aware - feed prn while on comfort cares Status: Acute (4) Pneumonia: Problem details: - probable aspiration vs community acquired pneumonia - was initiated on ceftriaxone, azithromycin - > escalated to vancomycin and Zosyn with positive blood cultures - paradigm of care changed to comfort focus measures only on 09/11/2024 Status: Acute (5) Hypernatremia: Problem details: - admission sodium of 158, improved with IVFs Status: Resolved (6) 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 Comorbidities: frontotemporal dementia, HTN, and a fib. Transitioned to comfort-focused measures on 09/11. Plans to d/c to [facility] with hospice next week. Family seen at bedside and in hallway, no concerns. Feel that patient is comfortable. Exam Narrative: Exam Narrative: [place] is resting in bed, not responding to voice
[2024-09-14] MEDS: LORazepam 1 MG TABLET PO (18:43)
--- NOTE | 2024-09-14 19:13 | PC.NURSE ---
Patient alert. PRN morphine and ativan given this shift for comfort. Patient remains comfortable expect during turning and repositioning. Patient seems very uncomfortable and triggers coughing spell where patient coughs for a long time. MD ok'd PRN turning and repositioning vs Q2hour turns. Patient given a bedbath and lotion applied this shift. No itching noted this shift. Family at bedside all shift.
[2024-09-15] MEDS: MORPHINE 10 MG/0.5 ML ORAL SOLN PO ×8 (05:48→23:48)
--- NOTE | 2024-09-15 10:53 | PC.SOCIAL ---
Discharge planning: Pt's case was discussed in rounds this morning. The provider on duty wanted this worker to check with [facility] to see if they would take the pt with a negative antigen test, as an antigen has not been done in the hospital, only a PCR test has been done. petroleum refinery worker checked with Brigid at [facility] and she shared that the testing did not matter and they still had to wait until the 30th to admit the pt, as that would rodo 10 days from his positive COVID test in the hospital. petroleum refinery worker also spoke to Anel from [facility] and she shared that they take pt's that are COVID positive at their correction facilities; however, they do need to put them in a private isolation room with a private bathroom. Currently, they have no private long-term care rooms with a private bathroom at any of the [facility], so this would not be an option for the pt. Anel will let this worker know if something opens up. petroleum refinery worker also spoke to Otilio at [facility] who clarified that they can take COVID positive pt's at their correction facilities; however, they would also need to be placed in a private isolation room with a private bathroom. Currently, none of the [place] facilities close to [place]([facility] [place] and [facility]) have long-term care beds that are in a private room with a private bathroom. Since the pt would be going to a facility on hospice he would need a long-term care bed(which LTC beds do also tend to have less availability at facilities). Social work to follow-up as needed.
--- NOTE | 2024-09-15 13:00 | PM.IMPN1 ---
Progress Note: A&P Assessment and plan (1) Palliative care encounter: Problem details: - advanced to comfort cares 09/11/24 - plan was to transition from the hospital to [facility], (since he is COVID positive they cannot receive until 10 days after diagnosis, which would be 09/18/24) Status: Acute (2) COVID-19: Problem details: - symptoms: cough/congestion, no COVID specific therapies Status: Acute (3) Aspiration into airway: Problem details: - Continues to aspirate, family aware - feed prn while on comfort cares Status: Acute (4) Pneumonia: Problem details: - probable aspiration vs community acquired pneumonia - was initiated on ceftriaxone, azithromycin - > escalated to vancomycin and Zosyn with positive blood cultures (but this ultimately was staph epi, with neg subsequent cultures) - paradigm of care changed to comfort focus measures only on 09/11/2024 Status: Acute (5) Hypernatremia: Problem details: - admission sodium of 158, improved with IVFs - last check was 144 on 09/11 Status: Resolved (6) 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 Right upper lobe pneumonia. Bacteremia had 1 initial positive with Staph epi. All subsequent cultures were negative. No new labs since the . No substantial oral intake since the 09/10 Objective: eyes open; unresponsive verbally and nonverbally. does not follow commands. Vitals: see above Lungs: shallow breathing; no distress Cardiac: S1S2. Legs: no mottling; warm - well perfused. Disposition/Potential discharge - Today I spent 50minutes seeing the patient, reviewing [facility] and EPIC notes/diagnostics, discussing the care plan with our care time that includes social work, PT/OT, pharmacy, RT, residential and documenting my impressions and plan in the medical recordGeoffrey Pruett was admitted to the hospital on 09/08/23 for weakness, pneumonia, and hypernatremia in the setting of + COVID infection. Comorbidities: frontotemporal dementia, HTN, and a fib. Transitioned to comfort-focused measures on 09/11. Plans to d/c to [facility] with hospice next week. Family seen at bedside and in hallway, no concerns. Feel that patient is comfortable.
--- NOTE | 2024-09-15 19:57 | PC.NURSE ---
End of shift [id number] - Pt alert during majority of shift, non verbal at baseline. Minimally responsive to verbal commands. Family at bedside, RN provided education to family regarding feeding patient, suctioning, and medication schedules. Pt behavior and family request provided RN with indication for medication per MAR. Pt observed to sleep at end of shift.
[2024-09-15] MEDS: SODIUM CHLORIDE 0.9 % (FLUSH) 10 ML SYRINGE 5 ML IVF (20:56)
[2024-09-16] MEDS: MORPHINE 10 MG/0.5 ML ORAL SOLN PO ×7 (03:15→22:35)
--- NOTE | 2024-09-16 06:23 | PC.NURSE ---
Shift note: Patient has been calm throughout the shift. Morphine given to keep patient comfortable. Pt is awake this morning, nonverbal. Family member has been with pat throughout the night. Urine has been decreasing as pt takes nothing by mouth.
--- NOTE | 2024-09-16 09:20 | NUTR.NU ---
RDN with LOS note. Patient is now on comfort cares. Plan is to discharge to facility [facility]. No nutrition interventions at this time due to goal of cares. Will continue to monitor.
--- NOTE | 2024-09-16 13:31 | PC.SOCIAL ---
Addendum entered by Jennifer Wasserman, DOUGH MIXING MACHINE OPERATOR 09/16/24 15:37: Discharge planning: Due to the hospital pharmacy not being able to send narcotic medication(pt's liquid morphine/comfort medication) with the pt when he goes to [facility] on via EMS(this would only be 1-2 doses until all of pt's medications arrived at [facility]), discharge orders and medications will be sent on Sunday to [facility] and [facility], so that pt's medications will be at [facility] when he arrives on . automotive production worker confirmed with Brigid from [facility] that this was okay. automotive production worker also spoke to Leticia Brandy with [facility] and updated her with this news on the comfort medications and discharge orders. Leticia would like to be notified with the time that non-emergent EMS is set-up to transport the pt on . Leticia's contact number is #[phone]. Leticia will work on getting a hospice intake appointment time set-up with pt's family for after the pt arrives at [facility]. Social work to follow-up as needed. Addendum entered by Jennifer Wasserman, DOUGH MIXING MACHINE OPERATOR 09/16/24 14:27: Discharge planning/Per Brigid from [facility]: Pt's medications should be sent to [facility] at discharge. Brigid states that [facility] DOES NOT need a COVID antigen test done on the pt before he admits to [facility]. [facility] prefers a morning admit time and 2pm would be the latest admit time. Discharge orders will need to read Ok to admit to Assisted Living with Memory Care. Nurse to nurse phone number is #[phone] or #[phone] and staff should ask for Ally Van RN. Pt is taking liquid morphine by mouth in his cheek. [facility] will need to have some comfort medications sent with the pt until hospice admit and medications can arrive. Social work to follow-up as needed. Original Note: Discharge planning: automotive production worker met with pt's , Yelena, to discuss which hospice agency she would like to choose. Yelena picked [facility]. automotive production worker faxed a referral to [facility] at fax #[phone]. Social work to follow-up as needed.
--- NOTE | 2024-09-16 13:32 | PM.IMPN1 ---
Progress Note: A&P Assessment and plan (1) Palliative care encounter: Problem details: - advanced to comfort cares 09/11/24 - plan was to transition from the hospital to [facility], (since he is COVID positive they cannot receive until 10 days after diagnosis, which would be 09/18/24) Status: Acute (2) COVID-19: Problem details: - symptoms: cough/congestion, no COVID specific therapies Status: Acute (3) Aspiration into airway: Problem details: - Continues to aspirate, family aware - feed prn while on comfort cares Status: Acute (4) Pneumonia: Problem details: - probable aspiration vs community acquired pneumonia - was initiated on ceftriaxone, azithromycin - > escalated to vancomycin and Zosyn with positive blood cultures (but this ultimately was staph epi, with neg subsequent cultures) - paradigm of care changed to comfort focus measures only on 09/11/2024 Status: Acute (5) Hypernatremia: Problem details: - admission sodium of 158, improved with IVFs - last check was 144 on 09/11 Status: Resolved (6) 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 sleeping more. No appreciable PO intake. Notable Labs, Micro, Rads, Interventions: Reviewed admission CTA. Right upper lobe pneumonia. Bacteremia had 1 initial positive with Staph epi. All subsequent cultures were negative. No new labs since the . No substantial oral intake since the 09/10 Objective: eyes open; unresponsive verbally and nonverbally. does not follow commands. Vitals: see above Lungs: shallow breathing; no distress Cardiac: S1S2. Legs: no mottling; warm - well perfused. Disposition/Potential discharge - Today I spent 50minutes seeing the patient, reviewing Expanse and EPIC notes/diagnostics, discussing the care plan with our care time that includes social work, PT/OT, pharmacy, RT, prison and documenting my impressions and plan in the medical record.
[2024-09-16] MEDS: LORazepam 1 MG TABLET PO ×2 (16:10→21:34)
--- NOTE | 2024-09-16 21:57 | PC.NURSE ---
End of Shift: Patient opens eyes to name. PRN Morphine and Ativan for comfort. Turn and reposition for comfort.
--- NOTE | 2024-09-17 06:57 | PC.NURSE ---
The patient appeared comfortable throughout the night, no PRN medications were given. The patients family member slept overnight in the recliner. Purewick intact and suctioning a small amount of urine throughout the night
--- NOTE | 2024-09-17 09:18 | PC.SOCIAL ---
Addendum entered by Maribel Mclean SECURITY ASSURANCE ANALYST 09/17/24 14:34: Met at length with pt's and dtr regarding d/c plan. Family is aware of their right to appeal discharge. At this time, they are in agreement with plan for discharge tomorrow to [facility] with hospice services through [facility]. is aware [place] will contact her to discuss time for admissions visit at [facility] tomorrow. Family is aware the controlled medications for pain are being sent to the pharmacy used by [facility] so that they can continue to provide these from the facility until hospice is able to provide them. Pt will be discharged by EMS and is expected to meet criteria for medical necessity for EMS transport. Family plans to visit [facility] today to see the room and have their facility questions answered. Currently, pt is scheduled for discharge to [facility] at 10:00am tomorrow with [facility] starting the same day. Social work to follow up tomorrow as needed. Original Note: Discharge planning: Called [facility] and spoke with Brigid to confirm pt will be sent tomorrow. Brigid is expecting pt and requested 24 hours of controlled substance medication be sent to the [facility] today to be ready for admit tomorrow. [facility] is requesting admit in the morning and can not accept after 2:00. Plan is for pt to be sent at 10:00 by non-emergency ambulance. Brigid requested orders be sent prior to discharge tomorrow. Called [facility] and spoke with Leticia [phone]. They are aware of plan for discharge tomorrow at 10:00 and are aware discharge may be delayed if EMS is not available at this time. Discharge orders to be sent to [facility] tomorrow. Leticia will contact to coordinate hospice admit time at [facility]. fuel system maintenance worker to follow up as needed.
--- NOTE | 2024-09-17 10:14 | PM.IMPN1 ---
Progress Note: A&P Assessment and plan (1) Palliative care encounter: Problem details: - advanced to comfort cares 09/11/24 - plan was to transition from the hospital to [facility], (since he is COVID positive they cannot receive until 10 days after diagnosis, which would be 09/18/24) Status: Acute (2) COVID-19: Problem details: - symptoms: cough/congestion, no COVID specific therapies Status: Acute (3) Aspiration into airway: Problem details: - Continues to aspirate, family aware - feed prn while on comfort cares Status: Acute (4) Pneumonia: Problem details: - probable aspiration vs community acquired pneumonia - was initiated on ceftriaxone, azithromycin - > escalated to vancomycin and Zosyn with positive blood cultures (but this ultimately was staph epi, with neg subsequent cultures) - paradigm of care changed to comfort focus measures only on 09/11/2024 Status: Acute (5) Hypernatremia: Problem details: - admission sodium of 158, improved with IVFs - last check was 144 on 09/11 Status: Resolved (6) 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 Comorbidities: frontotemporal dementia, HTN, atrial fibrillation. Transitioned to comfort-focused measures on 09/11. Plans to d/c to [facility] tomorrow (needed to stay in hospital 10 days post COVID diagnosis). Family seen at bedside and in hallway, no concerns. Feel that patient is comfortable; has had a decrease in UOP overnight. Exam Narrative: Exam Narrative: Laying comfortably in bed, respirations unlabored. Eyes open when I touch his foot. Extremities warm with + pulses. Tachycardia
--- NOTE | 2024-09-17 14:14 | PC.NURSE ---
Shift Summary: Patient has been resting throughout day, family present at bedside and has been providing cares. Staff assess for incontinence, patients brief has been dry, little urine output, patient has purewick in place. Offered PRN medication for comfort hourly however family has been declining, patient does appear comfortable in bed.
[2024-09-17] MEDS: MORPHINE 10 MG/0.5 ML ORAL SOLN PO ×2 (18:56→21:03)
[2024-09-17 21:23] VITALS: TEMP 37.9
[2024-09-17] MEDS: ACETAMINOPHEN 650 MG SUPP PR (21:23)
[2024-09-18 00:30] VITALS: TEMP 36.4
[2024-09-18] MEDS: MORPHINE 10 MG/0.5 ML ORAL SOLN PO ×4 (00:31→08:50)
[2024-09-18] MEDS: LORazepam 1 MG TABLET PO (08:51)
--- NOTE | 2024-09-18 10:41 | PM.DS1 ---
DS: Providers Provider Date Seen: 09/18/24 Date of admission: 09/08/24 23:30 Primary care physician: Deepak Meyer MD Admitting Clinician: Vinay Lai MD Attending Physician on discharge: Iwona Rueda MD Date of Discharge: 09/18/24 DS: Diagnosis Discharge Diagnosis (1) Frontotemporal dementia: Status: Chronic Problem details: - longstanding and progressive; nonverbal, not able to indicate hunger or thirst (2) Palliative care encounter: Status: Acute Problem details: - advanced to comfort cares 09/11/24 - plan was to transition from the hospital to [facility], (since he is COVID positive they cannot receive until 10 days after diagnosis, which would be 09/18/24) (3) Pneumonia: Status: Acute Problem details: - probable aspiration vs community acquired pneumonia - was initiated on ceftriaxone, azithromycin - > escalated to vancomycin and Zosyn with positive blood cultures (but this ultimately was staph epi, with neg subsequent cultures) - paradigm of care changed to comfort focus measures only on 09/11/2024 (4) Atrial fibrillation with RVR: Status: Acute Problem details: - occurred 09/09 am after aspiration event, new diagnosis - converted back to NSR - patient has h/o falls, understands risk of stroke without anticoagulation and would like to hold on starting anticoag due to risk outweighing benefit (5) Aspiration into airway: Status: Acute Problem details: - Continues to aspirate, family aware - feed prn while on comfort cares (6) NANCY (acute kidney injury): Status: Acute Problem details: Likely pre renal NANCY due to patient's inability to communicate thirst or obtain water. - 09/09 Continue IVF, recheck - 09/10 Improving. Decrease IVF to maintenance. Allow PO intake according to speech therapy recommendations with understanding of high likelihood of aspiration. (7) Hypernatremia: Status: Resolved Problem details: - admission sodium of 158, improved with IVFs - last check was 144 on 09/11 (8) COVID-19: Status: Acute Problem details: - symptoms: cough/congestion, no COVID specific therapies DS: Summary Hospital Course Hospital Course: Flynn was admitted to the hospital on 09/08/24 for illness in the setting of COVID infection. During stay, noted to have severe hypernatremia, NANCY, AFib, aspiration pneumonia. Family conference held on hospital day 3 and decision made to transition to comfort focused care. He was accepted by [facility] hosp[facility] for discharge on 09/18/2024. Status at Discharge Functional status at discharge: bed bound Time Spent with Patient Time attestation: Total time spent providing and/or coordinating discharge services: Time spent: Greater than 30 minutes Specific discharge activities: Medication reconciliation, hospice plan of care with multidisciplinary team Exam Narrative: Exam Narrative: Patient is laying comfortably in bed, he is nonverbal, occasionally opens eyes Moves right extremity spontaneously Heart rate 90-100s Extremities warm and well perfused with palpable pulses Const: Vital Signs, click to edit/add: Vital Signs - 24 hr 09/17/24 21:23 09/18/24 00:30 Temperature 100.2 F H 97.5 F L Discharge Plan Discharge Disposition: [facility] Discharge Location: [facility] Date of Admission: 09/08/24 23:30 Attending Provider on Discharge: Iwona Rueda Primary Care Provider: Deepak Meyer Anticipated Discharge Date/Time: 09/18/24 08:48 Discharge Medications: New lorazepam 1 mg Tablet 1 mg PO Q4H PRNQty: 10 0RF morphine concentrate 10 mg/0.5 mL Syringe 1 - 10 mg PO Q1H PRNQty: 30 0RF Discontinued amlodipine 5 mg tablet 5 mg PO DAILY Patient Comments: GIVE WHEN BP IS OVER 130/90. Discharge Orders: Discharge Order (Routine); Ordered 09/18/24 Ordered By: Iwona Rueda Activity Level: No Restrictions Discharge Diet: Regular Dysphagia Food: Level 4- Pureed Follow Up Appointments: Deepak Meyer MD [Primary Care Provider] - Forms: [facility] Info Instructions Admit to: hospice Can use facility standing orders?: Yes Therapy Orders Additional Information: hospice Oxygen: No Hospice Evaluate and Admit: yes - . [facility] 09/18 Orders are good >30 days: Yes Signature: Iwona Rueda MD
--- NOTE | 2024-09-18 11:20 | PC.SOCIAL ---
Discharge planning: Discharge orders were secure emailed to Brigid at [facility] this morning, [email or web address]. broke worker also sent pt's discharge orders and discharge summary to [facility] via fax at fax #[phone]. Leticia Nava with [facility] was informed of pt's departure from the hospital this morning. Social work to follow-up as needed.
--- NOTE | 2024-09-18 11:49 | PC.NURSE ---
Discharge-- Pt awake but drowsy, and disoriented and non-verbal per baseline dementia. Minimal purposeful responses noted including eye contact and hand holding. Discharged to [facility] at approximately 1035 this morning via EMS. Pt appeared comfortable and peaceful. LS CTA. HR reg. Pt occasionally able to swallow and coughing to clear secretions. Did cough following medication administration. Pt was pre-medicated prior to discharge with Ativan and Morphine. Family was at bedside and appear loving and supportive. Nurse to nurse report given to ANSELMO Canales at [facility]. All questions answered.
== END 2024-09-18 10:40 | disposition hospice, inpatient (51) | DRG 56 ==
LOC: ED 22:58 → MEDSURG 23:10
PROVIDERS: Family Medicine; Internal Medicine; Admitting Provider Family Medicine; Emergency Provider Emergency Medicine Emergency Medical Services; PCP Surgery; Visit Provider Family Medicine
DX: G31.09 Other frontotemporal neurocognitive disorder (principal); J12.82 Pneumonia due to coronavirus disease 2019; J69.0 Pneumonitis due to inhalation of food and vomit; U07.1 COVID-19; E87.0 Hyperosmolality and hypernatremia; N17.9 Acute kidney failure, unspecified; T17.898A Other foreign object in other parts of respiratory tract causing other injury, initial encounter; I48.91 Unspecified atrial fibrillation; R06.03 Acute respiratory distress; F02.C0 Dementia in other diseases classified elsewhere, severe, without behavioral disturbance, psychotic disturbance, mood disturbance, and anxiety; I12.9 Hypertensive chronic kidney disease with stage 1 through stage 4 chronic kidney disease, or unspecified chronic kidney disease; E86.0 Dehydration; I95.9 Hypotension, unspecified; E87.6 Hypokalemia; N18.9 Chronic kidney disease, unspecified; Z51.5 Encounter for palliative care
CPT/HCPCS: 36415; 51798; 71045; 71275; 80048; 82803; 83605; 83880; 84295; 85025; 85027; 85610; 85730; 87040; 87186; 87426; 87631; 92526; 92610; 99284; 99285; A9270; J0456; J0696; J1885; J2543; J3372; J3480; J7030; J7050; J7070; J7120; Q9967; S5010

== ENCOUNTER 2024-09-18 10:17 | Outpatient (CLI) | payer MEDICARE, SELFPAY | END 2024-09-18 10:18 | disposition home or self-care (01) | LOC: AMB 09-22 19:59 | PROVIDERS: PCP Surgery; Visit Provider Emergency Medicine | DX: G31.09 Other frontotemporal neurocognitive disorder (principal) | CPT/HCPCS: A0425; A0428 ==